=== PATIENT | male | born 1940 | race Caucasian/White ===

== ENCOUNTER 2016-09-08 07:22 | Observation (INO) | payer MEDICARE ==
[2016-09-08 08:50] LABS: Hematocrit 46 % (42-52); Hemoglobin 15.6 g/dl (14.0-18.0); Mean Corpuscular HGB Conc 34 g/dl (31-36); Mean Corpuscular Hemoglobin 33 pg (27-31); Mean Corpuscular Volume 98 fL (80-94); Mean Platelet Volume 9 um3 (7.4-10.4); Red Blood Count 4.73 10^6/ul (4.0-5.4); Red Cell Distribution Width 13 % (10.5-15); White Blood Count 5.4 10^3/ul (3.5-10.8)
[2016-09-08] MEDS ORDERED: Meclizine TAB* 12.5 MG PO PRN (09:03)
[2016-09-08 09:06] LABS: Albumin 3.8 g/dL (3.2-5.2); BUN/Creatinine Ratio 13.3 (8-20); Calcium 8.8 mg/dL (8.6-10.3); EGFR African American 105.8 (>60); EGFR Non-African American 82.3 (>60); Globulin 3.1 g/dL (2-4); Potassium 3.9 mmol/L (3.5-5.0); Total Bilirubin 0.7 mg/dL (0.2-1.0); Total Protein 6.9 g/dL (6.4-8.9)
--- NOTE | 2016-09-08 09:11 | ED ---
Conchis Moreno Edward, scribed for Belle Estrada MD on 09/08/16 at 0736 . Dizziness - HPI Summary HPI Summary: 76 y/o male presents to ED c/o intermittent dizziness starting three days ago. The dizziness is described as room spinning and can be aggravated by turning his head, but does not last very long if he keeps his head still. The pt states he only has dizziness in the morning. Associated sx: nausea with dizziness, black stool for a week and a half and mild chest pain described as pressure, starting this morning when he woke up and lasting a couple of minutes. Denies hearing deficiency, tinnitus, vomiting and ABD pain. FHx HTN and PMHx no DM, HLD , HTN, CA, colitis. SHx stent in 1999. Pt uses EtOH three times a week. - History Of Current Complaint Chief Complaint: EDDizziness Stated Complaint: DIZZY,NAUSEA Hx Obtained From: Patient Timing: Intermittent Episode Lasting - Briefly, only in the morning Aggravating Factor(s): Change In Head Position - Turning head to the side Alleviating Factor(s): Other - Keeping head still Associated Signs And Symptoms: Positive: Nausea, Chest Pain - Mild chest pressure, Blood In Stool - Black stool, Other: - No hearing defiency. Negative : Vomiting, Tinnitus - Risk Factors Cardiac Risk Factors: Hypertension, Family History - HTN, Prior CA - Allergies/Home Medications Allergies/Adverse Reactions: Allergies Allergy/AdvReac Type Severity Reaction Status Date / Time No Known Allergies Allergy Verified 09/08/16 07:43 Home Medications: Home Medications Cholecalciferol [Vitamin D3] 1,000 units PO DAILY 09/08/16 [History Confirmed ] Ecotrin EC Low Dose 81 MG* 81 mg PO DAILY 09/08/16 [History Confirmed 09/08/16] Lisinopril TAB* [Prinivil TAB 10 MG*] 10 mg PO DAILY 09/08/16 [History Confirmed 09/08/16] Mesalamine (NF) [Lialda (NF)] 1.2 mg PO DAILY 09/08/16 [History Confirmed ] Metoprolol Tartrate TAB* [Lopressor TAB*] 50 mg PO DAILY 09/08/16 [History Confirmed 09/08/16] Omeprazole CAP* [Prilosec CAP* 20 MG] 20 mg PO DAILY 09/08/16 [History Confirmed 09/08/16] Sertraline* [Zoloft*] 50 mg PO DAILY 09/08/16 [History Confirmed 09/08/16] ZyrTEC 10 MG TAB* 10 mg PO DAILY 09/08/16 [History Confirmed 09/08/16] PMH/Surg Hx/FS Hx/Imm Hx Previously Healthy: No Endocrine/Hematology History: Reports: Other Endocrine/Hematological Disorders - Dyslipidemia, HLD Cardiovascular History: Reports: Hx Hypertension, Hx Myocardial Infarction GI History: Reports: Hx Gastroesophageal Reflux Disease, Other GI Disorders - Colitis Psychiatric History: Reports: Hx Depression Infectious Disease History: Denies: Traveled Outside the [place] in Last 30 Days - Family History Known Family History: Positive: Cardiac Disease - CA - mother in 70's, Hypertension - Social History Occupation: Retired Lives: Alone Alcohol Use: Occasionally Hx Substance Use: No Substance Use Type: Reports: None Hx Tobacco Use: Yes Smoking Status (MU): Former Smoker - Quit in 1985 Type: Cigarettes Review of Systems Constitutional: Negative Eyes: Negative ENT: Negative - No tinnitus Positive: Chest Pain - Mild chest pressure Respiratory: Negative Positive: Nausea, Other - Black stool. Negative: Abdominal Pain, Vomiting Genitourinary: Negative Musculoskeletal: Negative Skin: Negative Neurological: Other - Dizziness. No vision deficiency Psychological: Normal All Other Systems Reviewed And Are Negative: Yes Physical Exam - Summary Physical Exam Summary: RECTAL EXAM: Normal, no blood in stool Triage Information Reviewed: Yes Vital Signs On Initial Exam: Initial Vitals Temp Pulse Resp BP Pulse Ox 97.5 F 54 20 162/73 98 09/08/16 07:26 09/08/16 07:26 09/08/16 07:26 09/08/16 07:26 09/08/16 07:26 Vital Signs Reviewed: Yes Appearance: Positive: Well-Appearing, No Pain Distress Skin: Positive: Warm, Skin Color Reflects Adequate Perfusion, Dry Eyes: Positive: EOMI, MYLA ENT: Positive: Pharynx normal, TMs normal Neck: Positive: Supple, Nontender Respiratory/Lung Sounds: Positive: Clear to Auscultation, Breath Sounds Present. Negative: Rales, Rhonchi, Wheezes Cardiovascular: Positive: RRR, Other - No gallop. Negative: Murmur, Rub Abdomen Description: Positive: Nontender, Soft, Other: - No rebound. Negative: Distended, Guarding Bowel Sounds: Positive: Present Musculoskeletal: Positive: Strength/ROM Intact. Negative: Edema Left, Edema Right Neurological: Positive: Sensory/Motor Intact, Alert, Oriented to Person Place, Time, CN Intact II-III, Other - Discomfort with R-sided gaze Psychiatric: Positive: Affect/Mood Appropriate Diagnostics - Vital Signs Vital Signs Temp Pulse Resp BP Pulse Ox 09/08/16 07:26 97.5 F 54 20 162/73 98 - Laboratory Lab Results: Lab Results 09/08/16 09/08/16 09/08/16 Range/Units 08:40 08:40 08:40 WBC 5.4 (3.5-10.8) 10^3/ul RBC 4.73 (4.0-5.4) 10^6/ul Hgb 15.6 (14.0-18.0) g/dl Hct 46 (42-52) % MCV 98 H (80-94) fL MCH 33 H (27-31) pg MCHC 34 (31-36) g/dl RDW 13 (10.5-15) % Plt Count 176 (150-450) 10^3/ul MPV 9 (7.4-10.4) um3 Neut % (Auto) 70.8 (38-83) % Lymph % (Auto) 19.1 L (25-47) % [place] % (Auto) 8.0 (1-9) % Eos % (Auto) 1.4 (0-6) % Baso % (Auto) 0.7 (0-2) % Absolute Neuts (auto) 3.8 (1.5-7.7) 10^3/ul Absolute Lymphs (auto) 1.0 (1.0-4.8) 10^3/ul Absolute Monos (auto) 0.4 (0-0.8) 10^3/ul Absolute Eos (auto) 0.1 (0-0.6) 10^3/ul Absolute Basos (auto) 0 (0-0.2) 10^3/ul Absolute Nucleated RBC 0 10^3/ul Nucleated RBC % 0.1 INR (Anticoag Therapy) 0.94 (0.89-1.11) APTT 30.5 (26.0-36.3) seconds Sodium 137 (133-145) mmol/L Potassium 3.9 (3.5-5.0) mmol/L Chloride 105 (101-111) mmol/L Carbon Dioxide 27 (22-32) mmol/L Anion Gap 5 (2-11) mmol/L BUN 12 (6-24) mg/dL Creatinine 0.90 (0.67-1.17) mg/dL Est GFR ( Amer) 105.8 (>60) Est GFR (Non-Af Amer) 82.3 (>60) BUN/Creatinine Ratio 13.3 (8-20) Glucose 124 H (70-100) mg/dL Calcium 8.8 (8.6-10.3) mg/dL Total Bilirubin 0.70 (0.2-1.0) mg/dL AST 14 (13-39) U/L ALT 12 (7-52) U/L Alkaline Phosphatase 75 (34-104) U/L Troponin I 0.00 (<0.04) ng/mL Total Protein 6.9 (6.4-8.9) g/dL Albumin 3.8 (3.2-5.2) g/dL Globulin 3.1 (2-4) g/dL Albumin/Globulin Ratio 1.2 (1-3) Result Diagrams: 09/08/16 08:40 09/08/16 08:40 Lab Statement: Any lab studies that have been ordered have been reviewed, and results considered in the medical decision making process. - EKG 1 Cardiac Rate: NL EKG Rhythm: Sinus Bradycardia - [address] Segment: Normal Ectopy: None EKG Interpretation: 07:45 Dizzy Course/Dx - Course Course Of Treatment: 76 yo very active male with 3 complaints 1) what seems to be peripheral vertigo, spinning in the am that is worse with turning his head to the side 2) cp this am at 6 with a hx of CA 3) dark tarry stools- takes iron and does have ulcerative colitis-no stool in rectal vault. Case was discussed with Dr. Chen who will bring the pt is as an obv to r/o CA Assessment/Plan: Discussed with Dr. Chen at 09:00, who agreed to admit the pt for observation of vertigo and CP. - Diagnoses Provider Diagnoses: Vertigo, Chest pain - Provider Notifications Discussed Care Of Patient With: Tiffany Chen Time Discussed With Above Provider: 09:00 Instructed by Provider To: Admit As Observation - For Vertigo and CP Discharge - Discharge Plan Condition: Stable Disposition: ADMITTED TO [facility] Referrals: Gerald Kong MD [Primary Care Provider] - The documentation as recorded by the Conchis queen Edward accurately reflects the service I personally performed and the decisions made by , Belle Estrada MD.
[2016-09-08] MEDS ORDERED: Acetaminophen TAB* 325 MG PO ONE (09:14)
[2016-09-08] MEDS ORDERED: Acetaminophen TAB* 325 MG PO PRN (11:36)
[2016-09-08] MEDS ORDERED: Ondansetron INJ* 2 MG/ML VIAL IV PRN (11:36)
[2016-09-08] MEDS ORDERED: NS 0.9% 1000 ML* 1,000 ML IV SCH (11:45)
--- NOTE | 2016-09-08 12:34 | RAD ---
Indication: Chest pain. Single frontal view of the chest performed at 1147 hours was reviewed. No prior study is available for comparison. No mediastinal shift is noted. Heart is of normal size and configuration. Lung tavares appear clear. IMPRESSION: NO ACTIVE CARDIOPULMONARY DISEASE IS NOTED.
[2016-09-08] MEDS: Heparin VIAL(*) 5000 UNITS/ML VIAL (FIVE THOUSAND) SUBCUT SCH ×2 (14:58→20:53)
[2016-09-08] MEDS: Meclizine TAB* 12.5 MG PO SCH ×2 (14:58→20:53)
[2016-09-08 15:08] LABS: Urine Bilirubin Negative (Negative); Urine Glucose Negative (Negative); Urine Nitrite Negative (Negative)
--- NOTE | 2016-09-08 22:37 | HP ---
CC: Dr. Kong * HISTORY AND PHYSICAL: DATE OF ADMISSION: 09/08/16 PRIMARY CARE PROVIDER: Dr. Kong. ATTENDING PHYSICIAN FROM THE HOSPITAL: Tiffany Chen DO * (report dictated by Lio Norwood NP). CHIEF COMPLAINT: 1. Dizziness. 2. Chest pain. HISTORY OF PRESENT ILLNESS: Mr. Farris is a 76-year-old male patient who has a history of coronary artery disease. He also carries a history of hypertension , hyperlipidemia. He has had a heart attack in the past requiring cardiac stenting, history of depression, ulcerative colitis and GERD. He comes in today , says that throughout the weekend he has been having episodes of dizziness, feeling like the room has been spinning, worse with moving his head, off and on since Thursday. He says he wakes up first thing in the morning, he feels dizzy. He has some essential oils that he puts on behind his ears and the dizziness eventually goes away. This happened Thursday and Thursday and it also happened again this morning. The patient says that he does not have any fevers or recent URI symptoms. He denies having any shortness of breath. He says he does get nauseous with this but he has not vomited. He says that he has not had any recent ear pain or ear discharge and there has been no reports of trouble with vision. No reports of weakness to one side or trouble with his gait. He says he has been feeing dizzy. He was concerned today though, however , because with this episode of dizziness, he did have an episode of chest discomfort described as a pressure in the center of his chest lasting minutes that went away by itself. He says he does not get pain with exertion. He says he does play softball on a weekly basis and he does not get pain when he runs the bases. He denied having any cough. No shortness of breath and no recent trips or travel or calf pain or leg pain. Because of the chest discomfort and the dizziness, the hospitalist service was asked to evaluate for admission. PAST MEDICAL HISTORY: Significant for: 1. GERD. 2. Hypertension. 3. Depression. 4. CAD. 5. IL x1. 6. Hyperlipidemia. 7. Ulcerative colitis. PAST SURGICAL HISTORY: 1. He has had a heart catheterization with stenting. 2. Appendectomy. HOME MEDICATIONS: According to a list that he provided us includes: 1. Metoprolol XL 50 mg p.o. daily. 2. Zoloft 50 mg daily. 3. Mesalamine 1.2 mg p.o. daily. 4. Lisinopril 10 mg daily. 5. Zyrtec 10 mg p.o. daily. 6. Vitamin D3 1000 units p.o. daily. 7. Prilosec 20 mg daily. 8. Aspirin 81 mg daily. ALLERGIES TO MEDICATIONS: Include no known drug allergies. FAMILY HISTORY: His mother had a history of IL, father's history was reviewed and noncontributory. SOCIAL HISTORY: He is a former smoker. He rarely drinks alcohol. Surrogate decision maker is his daughter. REVIEW OF SYSTEMS: There is no documented fever. He denied having any significant weight change. There was no double vision. He denies having any ear discharge. There is no rhinorrhea. No sore throat. No thyroid enlargement. There was chest pain per my HPI. There was no orthopnea. No nocturnal dyspnea. There was no abdominal pain. No nausea, no vomiting. There is no dysuria, no frequency, no seizure. There was no loss of consciousness, no pruritus, no skin ulcerations. Review of 14 systems completed , all others negative. PHYSICAL EXAMINATION GENERAL: At this time, Mr. Farris is a 76-year-old male patient who appears to be well nourished, well developed. He does not appear to be in acute distress. VITAL SIGNS: Blood pressure 150/79, pulse 47, respirations 16, O2 sat 97%, temperature of 97.5. HEENT: Head is atraumatic, normocephalic. Eyes: EOMs are intact. Sclerae anicteric and not pale. Throat: Oral mucosa appears to be moist. No oropharyngeal erythema. NECK: Supple. HEART: Heart sounds S1, S2. Regular rate and rhythm. No murmurs, rubs, or gallops. LUNGS: Clear to auscultation bilaterally. No wheezes, rales or rhonchi. ABDOMEN: Soft, flat, nontender. Bowel sounds present. EXTREMITIES: Pulses are 2+ throughout. He is able to move all 4 extremities with 5/5 strength. NEUROLOGIC: He is awake. He is alert. He is oriented x3. His tongue is midline. Commercial Management Accountant were equal. [id number] intact bilaterally. Cwpa-ok-wade intact bilaterally. Cranial nerves were intact. No nystagmus was noted on my exam. Visual tavares were intact and there was no report of double vision. SKIN: Grossly intact. LABORATORY DATA/DIAGNOSTIC STUDIES: Revealed a WBC of 5.4, RBC of 4.73, hemoglobin of 15.6, hematocrit of 46 with platelet count of 176,000. The INR is 0.94. PTT is 30.5. Sodium was 137, potassium was 3.9, chloride of 105, bicarb 27, BUN 12, creatinine 0.90. Glucose 124, calcium 8.8, total bili 0.7, AST 14, ALT 12, alk phos 75. Troponin 0. Albumin is 3.8. The patient did have an EKG obtained today. Unfortunately, I do not have a previous for comparison but this EKG revealed a sinus bradycardia, rate of 51, no ST elevation or T wave inversions were noted. Old medical records were reviewed. ASSESSMENT/PLAN: Mr. Farris is a 76-year-old male patient coming into the ER today with complaints of dizziness in addition to this one episode of chest discomfort. There was concern in the ED. Because of the chest discomfort and dizziness, we were asked to evaluate for admission. He will be admitted under observation status for: 1. Dizziness: At this point, I think this is benign positional vertigo. The symptoms have now resolved. At this point, I would just like to monitor him, we will get neuro checks every 4 hours. If he continues to have any more episodes of dizziness while he is here, then I will probably get an MRI of the brain and consult Neurology, but at this point, he appears to be stable and his symptoms again have resolved. I will order meclizine standing. 2. Chest discomfort: Again, he does have multiple risk factors of acute coronary syndrome. I will go ahead and cycle his troponin, check a stress test. We will get a D-dimer and also check a chest x-ray. 3. Coronary artery disease: He is on an aspirin, beta kimo, continue hold parameters. 4. Depression - continue supportive care. He is on Zoloft. 5. Gastroesophageal reflux disease - continue PPI therapy. 6. Hyperlipidemia - continue his current medical regimen. 7. History of ulcerative colitis - continue his mesalamine. 8. DVT prophylaxis - he is high risk, he will be placed on heparin subcu. 9. Code status - he wishes to be a DNR. He says he does have an MOLST form filled out, which I this record if possible. 10. Fluids, electrolytes, nutrition - he can have a heart healthy diet and then he will be n.p.o. after midnight for a possible stress test in the morning. TIME SPENT: Time spent on the admission 60 minutes, greater than half the time was spent [id number] with the patient obtaining my history and physical; other half the time spent going over plan of care with the patient and implementing plan of care. I did discuss the plan of care with my attending, Dr. Chen, who is in agreement. LIO NORWOOD, TWIN [id number]/CPS #: [id number] FRANNIE
[2016-09-09 02:38] LABS: EGFR African American 107.2 (>60); EGFR Non-African American 83.3 (>60)
[2016-09-09 04:53] LABS: Hematocrit 43 % (42-52); Hemoglobin 14.4 g/dl (14.0-18.0); Mean Corpuscular HGB Conc 34 g/dl (31-36); Mean Corpuscular Hemoglobin 33 pg (27-31); Mean Corpuscular Volume 97 fL (80-94); Mean Platelet Volume 8 um3 (7.4-10.4); Red Blood Count 4.42 10^6/ul (4.0-5.4); Red Cell Distribution Width 13 % (10.5-15); White Blood Count 6.5 10^3/ul (3.5-10.8)
[2016-09-09 05:04] LABS: BUN/Creatinine Ratio 16.5 (8-20); Calcium 8.7 mg/dL (8.6-10.3); EGFR African American 104.5 (>60); EGFR Non-African American 81.2 (>60); HDL Cholesterol 34.7 mg/dL; Potassium 3.8 mmol/L (3.5-5.0)
[2016-09-09] MEDS: Meclizine TAB* 12.5 MG PO SCH ×2 (05:26→13:14)
[2016-09-09] MEDS: Heparin VIAL(*) 5000 UNITS/ML VIAL (FIVE THOUSAND) SUBCUT SCH ×2 (05:26→13:17)
[2016-09-09] MEDS ORDERED: Omeprazole CAP* 20 MG PO SCH (07:30)
--- NOTE | 2016-09-09 08:38 | PN ---
Subjective Date of Service: 09/09/16 Interval History: No more vertigo (he describes as "spinning"). He states he had chest pain for 1 -2 minutes yesterday AM, never has that other times, does not have NTG at home. No new c/o, anxious to go home. Objective Active Medications: Acetaminophen (Tylenol Tab*) 650 mg PO Q6H PRN PRN Reason: FEVER/PAIN Last Admin: 09/09/16 02:32 Dose: 650 mg Aspirin (Aspirin Ec Low Dose*) 81 mg PO DAILY [facility] Heparin Sodium (Porcine) (Heparin Vial(*)) 5,000 units SUBCUT Q8HR [facility] Last Admin: 09/09/16 05:26 Dose: 5,000 units Lisinopril (Prinivil Tab*) 10 mg PO DAILY [facility] Meclizine HCl (Antivert Tab*) 12.5 mg PO Q8HR [facility] Last Admin: 09/09/16 05:26 Dose: 12.5 mg Mesalamine (Lialda (Nf)) 1.2 gm PO DAILY [facility] Metoprolol Succinate (Toprol Xl Tab*) 50 mg PO DAILY [facility] Omeprazole (Prilosec Cap*) 20 mg PO DAILY@0730 [facility] Ondansetron HCl (Zofran Inj*) 4 mg IV Q6H PRN PRN Reason: NAUSEA Sertraline HCl (Zoloft*) 50 mg PO DAILY [facility] Vital Signs 09/08/16 09/08/16 09/08/16 09:30 10:00 10:30 Temperature Pulse Rate 50 51 50 Respiratory Rate Blood Pressure 148/92 131/74 140/63 (mmHg) O2 Sat by Pulse 94 94 95 Oximetry 09/08/16 09/08/16 09/08/16 11:06 11:07 12:00 Temperature 97.5 F Pulse Rate 47 Respiratory 18 16 14 Rate Blood Pressure 150/79 (mmHg) O2 Sat by Pulse 97 Oximetry 09/08/16 09/08/16 09/08/16 13:00 13:53 14:00 Temperature Pulse Rate Respiratory 14 14 11 Rate Blood Pressure (mmHg) O2 Sat by Pulse Oximetry 09/08/16 09/08/16 09/08/16 15:00 15:11 16:00 Temperature 98.1 F Pulse Rate 66 Respiratory 19 16 18 Rate Blood Pressure 135/70 (mmHg) O2 Sat by Pulse 94 95 Oximetry 09/08/16 09/08/16 09/08/16 17:00 18:00 19:11 Temperature 98.1 F Pulse Rate 67 Respiratory 15 16 16 Rate Blood Pressure 148/75 (mmHg) O2 Sat by Pulse 95 Oximetry 09/08/16 09/09/16 09/09/16 23:12 00:00 03:13 Temperature 97.8 F 98.1 F Pulse Rate 61 62 Respiratory 16 18 Rate Blood Pressure 158/71 142/72 (mmHg) O2 Sat by Pulse 97 97 94 Oximetry Oxygen Devices in Use Now: None Appearance: Alert, partly up in bed. In good spirits. Looks comfortable. Eyes: No Scleral Icterus, - - No nystagmus Neck: NL Appearance and Movements; NL JVP, No Thyroid Enlargement, Masses Respiratory: Symmetrical Chest Expansion and Respiratory Effort, Clear to Auscultation, Clear to Percussion Cardiovascular: NL Sounds; No Murmurs; No JVD, RRR, No Edema, - Extremities: No Edema, No Clubbing, Cyanosis, - Skin: No Rash or Ulcers, No Nodules or Sclerosis, - Neurological: Alert and Oriented x 3, NL Sensation Result Diagrams: 09/09/16 04:41 09/09/16 04:40 Additional Lab and Data: Lab Results 09/08/16 09/08/16 09/08/16 Range/Units 08:40 08:40 08:40 WBC 5.4 (3.5-10.8) 10^3/ul RBC 4.73 (4.0-5.4) 10^6/ul Hgb 15.6 (14.0-18.0) g/dl Hct 46 (42-52) % MCV 98 H (80-94) fL MCH 33 H (27-31) pg MCHC 34 (31-36) g/dl RDW 13 (10.5-15) % Plt Count 176 (150-450) 10^3/ul MPV 9 (7.4-10.4) um3 Neut % (Auto) 70.8 (38-83) % Lymph % (Auto) 19.1 L (25-47) % [place] % (Auto) 8.0 (1-9) % Eos % (Auto) 1.4 (0-6) % Baso % (Auto) 0.7 (0-2) % Absolute Neuts (auto) 3.8 (1.5-7.7) 10^3/ul Absolute Lymphs (auto) 1.0 (1.0-4.8) 10^3/ul Absolute Monos (auto) 0.4 (0-0.8) 10^3/ul Absolute Eos (auto) 0.1 (0-0.6) 10^3/ul Absolute Basos (auto) 0 (0-0.2) 10^3/ul Absolute Nucleated RBC 0 10^3/ul Nucleated RBC % 0.1 INR (Anticoag Therapy) 0.94 (0.89-1.11) APTT 30.5 (26.0-36.3) seconds Sodium 137 (133-145) mmol/L Potassium 3.9 (3.5-5.0) mmol/L Chloride 105 (101-111) mmol/L Carbon Dioxide 27 (22-32) mmol/L Anion Gap 5 (2-11) mmol/L BUN 12 (6-24) mg/dL Creatinine 0.90 (0.67-1.17) mg/dL Est GFR ( Amer) 105.8 (>60) Est GFR (Non-Af Amer) 82.3 (>60) BUN/Creatinine Ratio 13.3 (8-20) Glucose 124 H (70-100) mg/dL Calcium 8.8 (8.6-10.3) mg/dL Total Bilirubin 0.70 (0.2-1.0) mg/dL AST 14 (13-39) U/L ALT 12 (7-52) U/L Alkaline Phosphatase 75 (34-104) U/L Troponin I 0.00 (<0.04) ng/mL Total Protein 6.9 (6.4-8.9) g/dL Albumin 3.8 (3.2-5.2) g/dL Globulin 3.1 (2-4) g/dL Albumin/Globulin Ratio 1.2 (1-3) Assess/Plan/Problems-Billing Assessment: - Patient Problems (1) Vertigo Current Visit: Yes Status: Acute Code(s): R42 - DIZZINESS AND GIDDINESS SNOMED Code(s): 620734592 Comment: Resolved, likely mild labyrinthitis. (2) Chest pain Current Visit: Yes Status: Acute Code(s): R07.9 - CHEST PAIN, UNSPECIFIED SNOMED Code(s): 70402190 Comment: Lasted 1-2 minutes. Hx [place] 1985. Stress test showed ischemia but at high level of exertion. Troponin wnl x 3. ECG wnl. Discussed with Dr. Evans. Stable angina, fup with Dr. Rasmussen. (3) HTN (hypertension) Current Visit: Yes Status: Acute Code(s): I10 - ESSENTIAL (PRIMARY) HYPERTENSION SNOMED Code(s): 64865850 Comment: Continue metoprolol, lisinopril. (4) Ulcerative colitis Current Visit: Yes Status: Acute Code(s): K51.90 - ULCERATIVE COLITIS, UNSPECIFIED, WITHOUT COMPLICATIONS SNOMED Code(s): 86133914 Comment: Continue mesalamine.
[2016-09-09] MEDS ORDERED: Lisinopril TAB* 10 MG PO SCH (09:00)
[2016-09-09] MEDS ORDERED: Mesalamine (NF) 1.2 GM TAB PO SCH (09:00)
[2016-09-09] MEDS ORDERED: Sertraline* 50 MG TAB PO SCH (09:00)
[2016-09-09] MEDS ORDERED: Metoprolol Succinate XL TAB* 50 MG PO SCH ×2 (09:00)
[2016-09-09] MEDS ORDERED: Aspirin EC Low Dose* 81 MG TAB.EC PO SCH (09:00)
--- NOTE | 2016-09-09 11:21 | RAD ---
Indication: Chest pain. Myocardial perfusion scan was performed utilizing 1 day protocol. 10.07 mCi of technetium 99m tetrofosmin was injected for the rest portion of study. Treadmill stress study was performed and 25.9 mCi of technetium 99m tetrofosmin was injected for the stress portion of the study. The maximum heart rate achieved was 85% of the maximum predicted value. Attenuation correction could not be performed due to body habitus. There is inferior wall photopenia extending into the septum which appears to reverse on the rest images. This is of moderate size. Evaluation of wall motion demonstrates no evidence of focal wall motion abnormality. Ejection fraction is 61%. IMPRESSION: Moderate-sized reversible change involving the inferior wall extending into the septum. Ejection fraction of 61% with no focal wall motion abnormality. ASSESSMENT: Intermediate risk Based on imaging criteria from ACC/AHA 2002 Guideline Update for the Management of Patients With Chronic Stable Angina Table 23. Noninvasive Risk Stratification. Reference.
[2016-09-09 14:54] VITALS: BP 143/75
--- NOTE | 2016-09-10 12:08 | DS ---
CC: Dr. Kong; Dr. Herrera in [place] DISCHARGE SUMMARY: DATE OF ADMISSION: DATE OF DISCHARGE: 09/09/16 HISTORY OF PRESENT ILLNESS: This 76-year-old man presented with both vertigo and chest pain. He lane s had vertigo for a few days. He only had chest pain for a minute or 2 on the morning of admission. The next morning, when I saw the patient, his vertigo had resolved completely. He was admitted to the telemetry unit. He had 3 troponins, all of which were within normal limits. He had an exercis e stress test with nuclear imaging. Dr. Evans administered the test. I discussed the test with morales christensen. The patient went over 8 minutes and with a high level of exertion, there were some changes on th e EKG and some chest discomfort, which the patient told Dr. Evans had been present many times when he had undergone similar exertion that was different than the pain he had had in the morning at rest on the day of admission. The nuclear images showed moderate area of reversible ischemia in the inferior wall extending to the septum. Wall motion was normal. Ejection fraction was normal. Dr. Evans interpreted this as the patient having stable angina and a good exercise tolerance. I ad vised the patient to call his primary ornamental metal fabricator apprentice, Dr. Herrera today or tomorrow morning to discu ss the findings with him to see if any change in his management would be indicated. FINAL DIAGNOSES: 1. Vertigo. 2. Stable angina. 3. Hypertension. 4. Ulcerative colitis. DISCHARGE MEDICATIONS: 1. Sertraline 50 mg daily. 2. Lisinopril 10 mg daily. 3. Zyrtec 10 mg daily. 4. Vitamin D3 1000 units daily. 5. Omeprazole 20 mg daily. 6. Aspirin 81 mg daily. 7. Mesalamine 1.2 g daily. 8. Metoprolol succinate 15 mg daily. [id number]/[facility] #: [id number]
== END 2016-09-09 15:18 | disposition home or self-care (01) ==
LOC: ED 07:22 → MEDTELE 09:02
PROVIDERS: ADMIT Hospitalist; ATTEND Internal Medicine
DX: R42 Dizziness and giddiness (principal); I25.119 Atherosclerotic heart disease of native coronary artery with unspecified angina pectoris; I10 Essential (primary) hypertension; K51.90 Ulcerative colitis, unspecified, without complications; I25.2 Old myocardial infarction; E78.5 Hyperlipidemia, unspecified; Z95.5 Presence of coronary angioplasty implant and graft; Z87.891 Personal history of nicotine dependence; K21.9 Gastro-esophageal reflux disease without esophagitis; Z79.899 Other long term (current) drug therapy
CPT/HCPCS: 36415; 71010; 78452; 80048; 80053; 80061; 81003; 82565; 83036; 84484; 84520; 85025; 85379; 85610; 85730; 87086; 93005; 93017; 99283; A9270-GY; A9502; G0378; J1644

== ENCOUNTER 2017-08-18 04:58 | Emergency (ER) | payer MEDICARE ==
[2017-08-18] MEDS ORDERED: NS 0.9% 1000 ML* 1,000 ML IV ONE (05:14)
[2017-08-18] MEDS ORDERED: Ketorolac INJ* 15 MG/ML 1 ML VIAL IM ONE (05:14)
[2017-08-18] MEDS ORDERED: Ondansetron INJ* 2 MG/ML VIAL IV ONE (05:14)
[2017-08-18] MEDS ORDERED: Morphine VIAL* 4 MG/ML VIAL (1 ml vial) IV ONE (05:15)
[2017-08-18 05:49] LABS: ABS Basophils 0 10^3/ul (0-0.2); ABS Eosinophils 0.2 10^3/ul (0-0.6); ABS Lymphocytes 1.5 10^3/ul (1.0-4.8); ABS Monocytes 0.8 10^3/ul (0-0.8); ABS Neutrophils 7.1 10^3/ul (1.5-7.7); ABS Nucleated RBC 0 10^3/ul; Eosinophil % 1.7 % (0-6); Hematocrit 44 % (42-52); Hemoglobin 14.9 g/dl (14.0-18.0); Lymphocyte % 15.5 % (25-47); Mean Corpuscular HGB Conc 34 g/dl (31-36); Mean Corpuscular Hemoglobin 33 pg (27-31); Mean Corpuscular Volume 97 fL (80-94); Mean Platelet Volume 8.3 um3 (7.4-10.4); Nucleated Red Blood Cells % 0.1; Platelet Count 214 10^3/ul (150-450); Red Blood Count 4.52 10^6/ul (4.00-5.40); Red Cell Distribution Width 13 % (10.5-15); White Blood Count 9.6 10^3/ul (3.5-10.8)
[2017-08-18 06:05] LABS: EGFR Non-African American 55.1 (>60)
[2017-08-18] MEDS ORDERED: Tamsulosin CAP* 0.4 MG PO ONE (06:19)
[2017-08-18 06:20] LABS: Urine Appearance Clear; Urine Blood Negative (Negative); Urine Color Yellow; Urine Ketones Negative (Negative); Urine Protein Negative (Negative); Urine Specific Gravity 1.011 (1.010-1.030); Urine Urobilinogen Negative (Negative)
--- NOTE | 2017-08-18 06:34 | ED ---
Saji Moreno Tariq, scribed for Magui Guerrero MD on 08/18/17 at 0528 . Abdominal Pain/Male - HPI Summary HPI Summary: A 77 y/o male presents to ED c/o right flank pain. According to the patient, he exhibited flank pain on the right side this past Thursday (3 days ago), however the pain went away and started up again during the night. The pain woke him up from his sleep and currently it has reached 6/10 in severity. He noted that sometimes it could reach 7/10. The right flank pain radiates to his back. The patient denies any urination issues/pain, nausea, vomit, chills or fever. He noted that he has a history of renal calculi and his symptoms feels similar to the symptoms he had then. Pt noted having a bowel movement this morning. PMHx of renal calculi. - History of Current Complaint Chief Complaint: EDFlankPain Stated Complaint: FLANK PAIN Time Seen by Provider: 08/18/17 05:09 Hx Obtained From: Patient Onset/Duration: Sudden Onset, Still Present Timing: Intermittent Severity Initially: Moderate Severity Currently: Moderate Pain Intensity: 6 Pain Scale Used: 0-10 Numeric Location: Flank - right Radiates: Yes Radiates to: Back Aggravating Factor(s): Nothing Alleviating Factor(s): Nothing Associated Signs And Symptoms: Positive: Other - NEGATIVE: Chills. Negative: Fever, Urinary Symptoms, Nausea, Vomiting - Allergies/Home Medications Allergies/Adverse Reactions: Allergies Allergy/AdvReac Type Severity Reaction Status Date / Time No Known Allergies Allergy Verified 09/08/16 07:43 PMH/Surg Hx/FS Hx/Imm Hx Endocrine/Hematology History: Reports: Other Endocrine/Hematological Disorders - Dyslipidemia, HLD Cardiovascular History: Reports: Hx Coronary Artery Disease, Hx Hypercholesterolemia, Hx Hypertension, Hx Myocardial Infarction GI History: Reports: Hx Gastroesophageal Reflux Disease, Other GI Disorders - Colitis Sensory History: Reports: Hx Contacts or Glasses, Hx Hearing Aid - not with pt Opthamlomology History: Reports: Hx Contacts or Glasses Psychiatric History: Reports: Hx Depression Infectious Disease History: No Infectious Disease History: Denies: Traveled Outside the [place] in Last 30 Days - Family History Known Family History: Positive: Cardiac Disease - [place] - mother in 70's, Hypertension - Social History Alcohol Use: Occasionally Alcohol Amount: Social drinking Hx Substance Use: No Substance Use Type: Reports: None Hx Tobacco Use: Yes Smoking Status (MU): Former Smoker Type: Cigarettes Review of Systems Negative: Fever, Chills Positive: Abdominal Pain - right flank pain. Negative: Vomiting, Nausea Positive: no symptoms reported All Other Systems Reviewed And Are Negative: Yes Physical Exam - Summary Physical Exam Summary: VITAL SIGNS: Reviewed. GENERAL: Patient is a well-developed and nourished MALE who is lying comfortable in the stretcher. Patient is not in any acute respiratory distress. HEAD AND FACE: No signs of trauma. No ecchymosis, hematomas or skull depressions. No sinus tenderness. EYES: PERRLA, EOMI x 2, No injected conjunctiva, no nystagmus. EARS: Hearing grossly intact. Ear canals and tympanic membranes are within normal limits. MOUTH: Oropharynx within normal limits. NECK: Supple, trachea is midline, no adenopathy, no JVD, no carotid bruit, no c- spine tenderness, neck with full ROM. CHEST: Symmetric, no tenderness at palpation LUNGS: Clear to auscultation bilaterally. No wheezing or crackles. CVS: Regular rate and rhythm, S1 and S2 present, no murmurs or gallops appreciated. ABDOMEN: RLQ tenderness. No signs of distention. No rebound no guarding, and no masses palpated. Bowel sounds are normal. EXTREMITIES: FROM in all major joints, no edema, no cyanosis or clubbing. NEURO: Alert and oriented x 3. No acute neurological deficits. Speech is normal and follows commands. SKIN: Dry and warm Triage Information Reviewed: Yes Vital Signs On Initial Exam: Initial Vitals Temp Pulse Resp BP Pulse Ox 97.9 F 63 20 154/82 97 08/18/17 05:00 08/18/17 05:00 08/18/17 05:00 08/18/17 05:00 08/18/17 05:00 Vital Signs Reviewed: Yes Diagnostics - Vital Signs Vital Signs Temp Pulse Resp BP Pulse Ox 08/18/17 05:12 59 96 08/18/17 05:11 66 166/95 95 08/18/17 05:00 97.9 F 63 20 154/82 97 - Laboratory Result Diagrams: 08/18/17 05:32 08/18/17 05:32 Lab Statement: Any lab studies that have been ordered have been reviewed, and results considered in the medical decision making process. - CT A/P CT CT Interpretation Completed By: Radiologist - 5 mm and 4 mm stones mid right ureter causing minimal to moderate hydronephrosis. 9 mm and 2 mm stones right kidney. Cystic foci bilateral kidneys. Unremarkable pancreas and gallbladder. No bowel obstruction, colitis, free fluid or free air. Normal appendix. Diverticulosis colon without acute diverticulitis. Small umbilical hernia and moderate left and small right inguinal region hernias, each containing fat. ED physician reviewed this radiology report. Re-Evaluation - Re-Evaluation First Eval Re-Evaluation Time: 06:20 Change: Improved Comment: PATIENT IS PAIN FREE AND FEELS BETTER. DISCUSSED RESULTS AND DISCHARGE WITH PATIENT. Abdominal Pain Fem Course/Dx - Course Course Of Treatment: A 77 y/o male presents to ED c/o right flank pain. According to the patient, he exhibited flank pain on the right side this past Thursday (3 days ago), however the pain went away and started up again during the night. The pain woke him up from his sleep and currently it has reached 6/ 10 in severity. He noted that sometimes it could reach 7/10. The right flank pain radiates to his back. The patient denies any urination issues/pain, nausea , vomit, chills or fever. He noted that he has a history of renal calculi and his symptoms feels similar to the symptoms he had then. A CT A/P revealed 5 mm and 4 mm stones mid right ureter causing minimal to moderate hydronephrosis. 9 mm and 2 mm stones right kidney. Cystic foci bilateral kidneys. Unremarkable pancreas and gallbladder. No bowel obstruction, colitis, free fluid or free air. Normal appendix. Diverticulosis colon without acute diverticulitis. Small umbilical hernia and moderate left and small right inguinal region hernias, each containing fat. ED physician reviewed this radiology report. In the ED course, the patient recieved Toradol, Morphine, Zofran, Flomax and IV fluids which improved his symptoms. Patient will be discharged with a diagnosis of renal colic and ureter calculi. Patient is to follow up with Urology in 1-2 days. Pt is agreeable with this plan. - Diagnoses Provider Diagnoses: Renal colic, Ureteral calculi Discharge - Sign-Out/Discharge Documenting (check all that apply): Discharge/Admit/Transfer - DISCHARGE - Discharge Plan Condition: Stable Disposition: HOME Prescriptions: oxyCODONE/Acetamin 5/325 MG* [Percocet 5/325 TAB*] 1 tab PO Q6H PRN #20 tab MDD 4 PRN Reason: Pain Tamsulosin CAP* [Flomax CAP*] 0.4 mg PO DAILY #7 cap Patient Education Materials: Kidney Stones (ED), Renal Colic (ED) Referrals: Gerald Kong MD [Primary Care Provider] - Mann Shelton MD [Medical Doctor] - 2 Days (FOLLOW UP WITH UROLOGY IN 1-2 DAYS. ) Additional Instructions: RETURN TO ED FOR ANY NEW OR WORSENING SYMPTOMS. The documentation as recorded by the Saji queen Tariq accurately reflects the service I personally performed and the decisions made by Cesar pichardo Abdul, MD.
[2017-08-18 06:56] VITALS: BP 148/79
--- NOTE | 2017-08-18 08:07 | RAD ---
CLINICAL HISTORY: Right flank pain COMPARISON: Similar CT examination August 06, 2011 TECHNIQUE: Noncontrast CT examination of the abdomen and pelvis from the lung bases through the initial tuberosities. FINDINGS: VISUALIZED LUNG BASES: The visualized lung bases are grossly clear. There is no pleural effusion. ABDOMEN AND PELVIS: Evaluation of the solid organs and vasculature is limited without intravenous contrast. The liver, spleen, pancreas and adrenal glands are grossly normal in appearance. The gallbladder is normal. Along the lateral margin of the upper pole of the right kidney there is a hyperattenuating 1.2 cm structure (image 67). At the mid-level of the right kidney there is a 1 cm renal calculus. There is moderate right-sided hydronephrosis. In the proximal right ureter there appear to be 2 renal calculi with a combined maximum cephalocaudal dimension of 1.2 cm (coronal image 47 and axial image 109). There is mild stranding of the ureter. There is at least one fluid density cyst along the posterior lateral margin of the left kidney. There is no left-sided hydronephrosis or left-sided renal calculi. There are no renal calculi seen in the urinary bladder. Evaluation of the gastrointestinal tract is limited in the absence of oral contrast. The small and large bowel are not distended.There are diverticula throughout the length of the colon becoming more concentrated at the rectosigmoid colon. There is no CT evidence of acute inflammatory change consistent with diverticulitis. There is no gross retroperitoneal or mesenteric lymphadenopathy. The prostate is mildly enlarged measuring 4 x 5.6 cm in the axial plane and 4.9 cm in the cephalocaudal projection. There are bilateral fat-containing inguinal hernias, larger on the left than the right. The coarsely calcified abdominal aorta and iliac arteries are normal in course and diameter. 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 This is similar to the 2012 CT examination. 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 Degenerative changes include multilevel loss of intervertebral disc height involving the lower thoracic and lumbar spine.There are no sinister bone lesions. IMPRESSION: 1. There are 2 renal calculi in the proximal right ureter with a combined maximum cephalocaudal dimension of 1.2 cm with moderate ipsilateral hydronephrosis and right perinephric stranding. 2. Diverticulosis without acute inflammatory change consistent with diverticulitis. 3. Additional chronic and degenerative changes as described in body the report.
== END 2017-08-18 06:56 | disposition home or self-care (01) ==
LOC: ED 04:58
DX: N13.2 Hydronephrosis with renal and ureteral calculous obstruction (principal); Z87.442 Personal history of urinary calculi; K57.30 Diverticulosis of large intestine without perforation or abscess without bleeding; M51.35 Other intervertebral disc degeneration, thoracolumbar region; K42.9 Umbilical hernia without obstruction or gangrene; K40.20 Bilateral inguinal hernia, without obstruction or gangrene, not specified as recurrent; E78.5 Hyperlipidemia, unspecified; I25.10 Atherosclerotic heart disease of native coronary artery without angina pectoris; I25.2 Old myocardial infarction; I10 Essential (primary) hypertension; E78.00 Pure hypercholesterolemia, unspecified; K21.9 Gastro-esophageal reflux disease without esophagitis; F32.9 Major depressive disorder, single episode, unspecified; Z82.49 Family history of ischemic heart disease and other diseases of the circulatory system; Z87.891 Personal history of nicotine dependence
CPT/HCPCS: 36415; 74176; 80053; 81003; 83690; 83735; 85025; 86140; 96372; 96374; 96375; 99283; J1885; J2270; J2405

== ENCOUNTER 2017-08-20 05:53 | Day surgery (SDC) | payer MEDICARE ==
--- NOTE | 2017-08-19 16:01 | HP ---
CC: Dr. Kong * HISTORY AND PHYSICAL: DATE OF PLANNED ADMISSION AND SURGERY: 08/20/17 HISTORY OF PRESENT ILLNESS: Mr. Farris is a 77-year-old white male, who is admitted with right ureteral calculi for cystoscopy, possible right ureteroscopy , laser lithotripsy, and right ureteral stent insertion. Mr. Farris presented to the emergency room 3 days ago with symptoms of right renal colic and was noted on non-contrast CT of the abdomen and pelvis to have 1.2- cm cluster of calculi in the proximal right ureter associated with right hydronephrosis. He was managed conservatively with pain medication and was sent home to follow up in our office. He has been doing relatively well with no recurrence of the acute pain. He was evaluated in the office and had a renal ultrasound, which showed moderate right hydronephrosis and a 1-cm calculus in the midpole of the right kidney and 1.1-cm calculus located about 6 cm distal to the right ureteropelvic junction. The full bladder ultrasound showed minimal jets from the right orifice and large jets from the left orifice. Because of the above history and finding and the size of the stone and the unlikelihood that they would pass spontaneously, the above procedure was advised and accepted. PAST MEDICAL HISTORY AND SYSTEM REVIEW: Detailed in the cardiology consult note dated 06/19/17. Mr. Farris sees Dr. Herrera, upper lining cementer, at [place]. He has a history of coronary artery disease, hypertension, hyperlipidemia, and has a right coronary artery disease and had stent placed 1 year ago. He has done very well and has had no recurrent angina. He is still maintained on anticoagulation with Brilinta. He has very good exercise tolerance and has been doing relatively well from that aspect. He has moderate symptoms of bladder outlet obstruction, but has not needed to be on any treatment. MEDICATIONS: He is maintained on the following medications: 1. Aspirin 81 mg daily. 2. Plavix 75 mg daily. 3. Lisinopril 10 mg daily. 4. Metoprolol 50 mg daily. 5. Brilinta 90 mg daily. 6. Zoloft 25 mg daily. 7. Crestor 20 mg daily. 8. Omeprazole 20 mg daily. 9. Nitroglycerin as needed. ALLERGIES: He reports being intolerant or having allergy to ZETIA. PHYSICAL EXAMINATION GENERAL: He is a pleasant looking white male, who looks his age. VITAL SIGNS: Blood pressure 126/70, pulse of 54, temperature 97, oxygen saturation 96% on room air. LUNGS: Clear. HEART: Regular and rhythmic. No murmurs. ABDOMEN: Soft and no CVA tenderness. IMPRESSION: 1. A 1.2-cm calculi in the proximal right ureter associated with right hydronephrosis. 2. History of coronary artery disease. 3. Hypertension. 4. Hyperlipidemia. PLAN: Plan is for cystoscopy and a placement of right ureteral stent. If the stone is accessible, right ureteroscopy, laser lithotripsy will be performed. Otherwise, the plan is to only put the stent and to bring him back at a later date for definitive treatment of the stone. I discussed the above plans with the patient and his daughter and all their questions were answered. [id number] #: [id number] MTDD
[~2017-08-20 05:53] MED LIST: Buffered Lidocaine 0.9% SYRIN* 5 ML/SYR SYRINGE INTRADERM ONE
[2017-08-20] MEDS ORDERED: cefTRIAXone(*) 1 GM ADVAN/BAG ONE (06:12)
[2017-08-20] MEDS ORDERED: Propofol* 10 MG/ML 20 ML BTL IV PUSH ONE (07:39)
[2017-08-20] MEDS ORDERED: fentaNYL* 50 MCG/ML 2 ML VIAL (100 MCG VIAL) ONE (07:40)
[2017-08-20] MEDS ORDERED: Lidocaine 2% PF * 5 ML VIAL ONE (07:40)
[2017-08-20] MEDS ORDERED: EPHEDrine (Pressors)* 50 MG/ML VIAL ONE (08:44)
[2017-08-20] MEDS ORDERED: Ondansetron INJ* 2 MG/ML VIAL IV PRN (09:06)
[2017-08-20] MEDS ORDERED: Naloxone* 0.4 MG/ML 1 ML VIAL IV PRN (09:06)
[2017-08-20] MEDS ORDERED: fentaNYL* 50 MCG/ML 2 ML VIAL (100 MCG VIAL) IV PRN (09:06)
--- NOTE | 2017-08-20 09:17 | RAD ---
INDICATION: Right ureteroscopic laser lithotripsy and stent insertion. COMPARISON: There are no prior studies available for comparison. TECHNIQUE: 9 seconds of intermittent fluoroscopic guidance were provided and 7 spot films of the abdomen were centered on the right side. FINDINGS: There is partial opacification of the right renal collecting system. Subsequently there is placement of a double-J stent catheter on the right side which demonstrates normal course. IMPRESSION: INTRAOPERATIVE CONTROL FILMS. CPT II Codes: G9500
[2017-08-20 10:30] VITALS: BP 145/69
--- NOTE | 2017-08-20 13:19 | OP ---
CC: Dr. Kong * DATE OF OPERATION: 08/20/17 - MERGED WITH [facility] DATE OF : 42 SURGEON: Mann Shelton MD ANESTHESIOLOGIST: Darell Roland DO ANESTHESIA: General. PRE-OP DIAGNOSES: 1. Right ureteral calculi (2 x 6 mm each). 2. Right renal colic due to above. POST-OP DIAGNOSES: 1. Right ureteral calculi (2 x 6 mm each). 2. Right renal colic due to above. OPERATIVE PROCEDURE: 1. Cystoscopy. 2. Right ureteroscopy, laser lithotripsy of right ureteral calculi. 3. Right retrograde pyelography and placement of right ureteral stent (6-Persian ). INDICATIONS: Mr. Farris is a 77-year-old white male, who presented to the emergency room 2 days ago with symptoms of right renal colic and was noted on noncontrast CT of the abdomen and pelvis to have 2 calculi adjacent to each other located in the proximal to mid right ureter associated with right hydronephrosis. Because of the size of the calculi, their location, and the recurrent episodes of pain, the patient is taken to the operating room for the above procedure. PATHOLOGY AT CYSTOSCOPY: The penile and bulbar urethrae looked normal. The prostatic urethra measured about 2.5 cm in length and there was moderate degree of obstruction by the prostate enlargement. There was a false passage noted in the prostatic urethra posterior to the urethra itself. There was elevation of the bladder neck and obstruction by the prostate. Examination of the bladder showed moderate diffuse trabeculations. There were no suspicious bladder lesions seen. No calculi or diverticula were noted. There was a single orthotopic orifice bilaterally. Upon right ureteroscopy, there were 2 calculi adjacent to each other located in the mid right ureter. The calculi were impacted. They had the gross appearance of calcium oxalate stone. Right retrograde pyelography showed moderate hydronephrosis. DESCRIPTION OF PROCEDURE: After successful general anesthesia, the patient was placed in the lithotomy position and was prepped and draped for cystoscopy. Cystoscopy was performed. The findings in the prostatic urethra and in the bladder were noted. A flexible-tip guidewire was then introduced into the right orifice and positioned in the area of the renal pelvis under fluoroscopic guidance. A size 6.5 semirigid ureteroscope was then introduced inside the bladder. A flexible-tip basket was introduced through the port of the ureteroscope and its flexible tip was introduced inside the right ureteral orifice adjacent to the guidewire. That allowed the atraumatic introduction of the ureteroscope inside the ureter. The scope was then gently introduced inside the ureter until the calculi were visualized. The basket was then introduced proximal to the calculi and it was deployed to avoid proximal migration of the stone fragments during the treatment. A size 550 micron laser fiber was then introduced through the other port of the ureteroscope. Using the laser energy, the stones were broken into multiple fragments. Care was taken not to cause any damage to the ureteral wall. There was some decreased visibility due to the fact that the patient is on anticoagulation with some blood with the treatment; however, the lasering was performed safely and achieved the complete fragmentation of the stones. The larger stone fragments were then extracted and sent for stone analysis. Final inspection of the ureter showed hyperemia and edema at the site of the stones but there was no evidence of any ureteral perforation. No significant stone fragments were noted. There was lots of gravel which is expected to pass spontaneously. Right retrograde pyelography was then performed. A size 7-Persian stent was then placed with the proximal end coiling in the renal pelvis and the distal end coiling inside the bladder. A 16-Persian Leroy catheter was then placed. Rectal examination was performed showing a moderately enlarged but non- suspicious prostate. The patient tolerated the procedure well and left the operating room in good condition. The plan is to see the patient back in about 10 to 14 days in the office and the stent will be removed under local anesthesia. [id number] #: [id number] MTDD
== END 2017-08-20 10:48 | disposition home or self-care (01) ==
LOC: OR 05:53
PROVIDERS: ATTEND Urology
DX: N13.2 Hydronephrosis with renal and ureteral calculous obstruction (principal); I25.10 Atherosclerotic heart disease of native coronary artery without angina pectoris; I10 Essential (primary) hypertension; E78.5 Hyperlipidemia, unspecified; Z95.5 Presence of coronary angioplasty implant and graft; Z79.01 Long term (current) use of anticoagulants; N40.1 Benign prostatic hyperplasia with lower urinary tract symptoms; N13.8 Other obstructive and reflux uropathy
CPT/HCPCS: 74420; 82365; 88300; C1876; J0696; J2704; J3010

== ENCOUNTER 2017-08-20 18:58 | Emergency (ER) | payer MEDICARE ==
--- NOTE | 2017-08-20 20:23 | ED ---
GI/ HPI - HPI Summary HPI Summary: 77 y/o presents to the ED unable to urinate s/p stent placed this morning. After surgery, the pt has been unable to urinate and c/o pressure when trying to urinate with some bright red blood noticed. Last time urinating was this morning. Denies back pain, fevers, chills. Sx not aggravated or alleviated by anything. Right kidney stent placed by Dr. Shelton this morning. - History of Current Complaint Chief Complaint: EDUrogenitalProblems Time Seen by Provider: 08/20/17 19:39 Stated Complaint: POST SUGERY/UNABLE TO URINATE Hx Obtained From: Patient Onset/Duration: Started Hours Ago, Still Present Timing: Constant Pain Intensity: 7 Associated Signs and Symptoms: Positive: Other: - blood in urine, unable to urinate. Negative: Back Pain - Additional Pertinent History Primary Care Physician: [id number] - Allergy/Home Medications Allergies/Adverse Reactions: Allergies Allergy/AdvReac Type Severity Reaction Status Date / Time No Known Allergies Allergy Verified 08/20/17 19:08 Home Medications: Home Medications Rosuvastatin (NF) [Crestor (NF)] 20 mg PO QPM 08/20/17 [History Confirmed ] PMH/Surg Hx/FS Hx/Imm Hx Previously Healthy: No Endocrine/Hematology History: Reports: Other Endocrine/Hematological Disorders - Dyslipidemia, HLD Cardiovascular History: Reports: Hx Coronary Artery Disease - 2 stents, Hx Hypercholesterolemia, Hx Hypertension - on meds, Hx Myocardial Infarction Denies: Other Cardiovascular Problems/Disorders Respiratory History: Reports: Hx Sleep Apnea Denies: Other Respiratory Problems/Disorders GI History: Reports: Hx Gastroesophageal Reflux Disease, Other GI Disorders - Colitis History: Reports: Hx Kidney Stones - current and many years ago Denies: Other Problems/Disorders Musculoskeletal History: Denies: Other Musculoskeletal History Sensory History: Reports: Hx Contacts or Glasses - glasses, Hx Hearing Aid - moy Opthamlomology History: Reports: Hx Contacts or Glasses - glasses Neurological History: Denies: Other Neuro Impairments/Disorders Psychiatric History: Reports: Hx Depression - Surgical History Hx Anesthesia Reactions: No Infectious Disease History: No Infectious Disease History: Denies: Traveled Outside the [place] in Last 30 Days - Family History Known Family History: Positive: Cardiac Disease - [place] - mother in 70's, Hypertension - Social History Alcohol Use: Occasionally Alcohol Amount: Social drinking Hx Substance Use: No Substance Use Type: Reports: None Hx Tobacco Use: Yes Smoking Status (MU): Former Smoker Type: Cigarettes Amount Used/How Often: pack a day for 25 yrs Review of Systems Negative: Fever, Chills Negative: Erythema Negative: Sore Throat Negative: Chest Pain Negative: Shortness Of Breath, Cough Negative: Abdominal Pain, Vomiting, Nausea Positive: dysuria, other - unable to urinate, bright red blood, pressure when trying to void Negative: Myalgia, Edema Negative: Rash Neurological: Other - No dizziness All Other Systems Reviewed And Are Negative: Yes Physical Exam - Summary Physical Exam Summary: Constitutional: Well-developed, Well-nourished, Alert. (-) Distressed Skin: Warm, Dry HENT: Normocephalic; Atraumatic Eyes: Conjunctiva normal Neck: Musculoskeletal ROM normal neck. (-) JVD, (-) Stridor, (-) Tracheal deviation Cardio: Rhythm regular, rate normal, Heart sounds normal; Intact distal pulses; The pedal pulses are 2+ and symmetric. Radial pulses are 2+ and symmetric. (-) Murmur Pulmonary/Chest wall: Effort normal. (-) Respiratory distress, (-) Wheezes, (-) Rales Abd: Soft, (-), epigastric tenderness, (-) Distension, (-) Guarding, (-) Rebound Musculoskeletal: (-) Edema Lymph: (-) Cervical adenopathy Neuro: Alert, Oriented x3 Psych: Mood and affect Normal Triage Information Reviewed: Yes Vital Signs On Initial Exam: Initial Vitals Temp Pulse Resp BP Pulse Ox 98.3 F 95 17 132/83 94 08/20/17 19:08 08/20/17 19:08 08/20/17 19:08 08/20/17 19:08 08/20/17 19:08 Vital Signs Reviewed: Yes Diagnostics - Vital Signs Vital Signs Temp Pulse Resp BP Pulse Ox 08/20/17 19:08 98.3 F 95 17 132/83 94 - Laboratory Result Diagrams: 08/20/17 20:54 08/20/17 20:54 Lab Statement: Any lab studies that have been ordered have been reviewed, and results considered in the medical decision making process. Re-Evaluation - Re-Evaluation 1 Re-Evaluation Time: 22:55 Change: Improved - urine clear and free flowing. discuss plan to d/c GIGU Course/Dx - Course Assessment/Plan: Dr. Zuniga called [facility] to consult, recommend straight cath and d/ c. After pt visit, discussed case with Dr. Zuniga, who recommends pt given 1L normal saline. As long as catheter free flowing, then after hydration Dr. Zuniga recommends d/c and f/u at his office. On re-eval, pt's urine is clear and free- flowing. Pt will be d/c home with f/u with Dr. Shelton in 4 days, with a catheter. - Diagnoses Provider Diagnoses: Hematuria, Acute urinary retention, Post-op bleeding - Physician Notifications Discussed Care Of Patient With: Santiago Zuniga Time Discussed With Above Provider: 20:50 Instructed by Provider To: Other Discharge - Sign-Out/Discharge Documenting (check all that apply): Patient Departure - Discharge Plan Condition: Stable Disposition: HOME Patient Education Materials: Hematuria (ED), Postoperative Bleeding (ED), Urinary Retention in Men (ED) Referrals: Mann Shelton MD [Medical Doctor] - 4 Days (PLEASE F/U ON THURSDAY. CALL FOR AN APPOINTMENT) Additional Instructions: RETURN TO ED FOR RETURN/CHANGING SYMPTOMS
[2017-08-20] MEDS ORDERED: NS 0.9% 1000 ML* 1,000 ML IV ONE (20:46)
[2017-08-20 21:00] LABS: Hematocrit 38 % (42-52); Hemoglobin 13.2 g/dl (14.0-18.0); Mean Corpuscular HGB Conc 35 g/dl (31-36); Mean Corpuscular Hemoglobin 33 pg (27-31); Mean Corpuscular Volume 96 fL (80-94); Mean Platelet Volume 7.7 um3 (7.4-10.4); Platelet Count 173 10^3/ul (150-450); Red Blood Count 3.99 10^6/ul (4.00-5.40); Red Cell Distribution Width 12 % (10.5-15); White Blood Count 9.2 10^3/ul (3.5-10.8)
[2017-08-20 21:08] LABS: INR 1.02 (0.77-1.02)
[2017-08-21 00:06] VITALS: BP 155/79
== END 2017-08-21 00:04 | disposition home or self-care (01) ==
LOC: ED 18:58
DX: R33.9 Retention of urine, unspecified (principal); R31.9 Hematuria, unspecified; N99.820 Postprocedural hemorrhage of a genitourinary system organ or structure following a genitourinary system procedure; Z96.0 Presence of urogenital implants; Z87.891 Personal history of nicotine dependence
CPT/HCPCS: 36415; 80053; 85027; 85610; 85730; 99282

== ENCOUNTER 2017-11-02 11:49 | Day surgery (SDC) | payer MEDICARE ==
--- NOTE | 2017-10-26 09:43 | HP ---
CC: Dr. Kong * HISTORY AND PHYSICAL: DATE OF PLANNED ADMISSION AND SURGERY: 11/02/17. HISTORY OF PRESENT ILLNESS: Mr. Farris is a 77-year-old white male who is admitted with a right renal calculus for shockwave lithotripsy. Mr. Farris was treated for an obstructing right ureteral calculus and underwent right ureteroscopy and laser lithotripsy on 08/20/17. Postoperatively , and after removal of the stent, he was noted to have partial obstruction of the proximal right ureter at the site of the original stone. On work-up, this was noted to be secondary to either post-operative edema or early ureteral stricture and on 10/14/17, he underwent a right ureteroscopy, balloon dilation, and ureteral stent placement. The patient is known to have an 8 to 10 mm calculus in the lower pole calyx of the right kidney. Considering he will need the stent for another 3 to 4 weeks and that he will need treatment of his renal calculus, the patient is admitted for shockwave lithotripsy of the right renal calculus. PAST MEDICAL HISTORY AND SYSTEM REVIEW: Detailed in my earlier admissions. He has history of coronary artery disease, and he was cleared for the previous two procedures by Dr. Herrera, his dispatch associate at [facility]. The patient has been stable cardiac bingham. MEDICATIONS: He is maintained on the following medications: 1. Lisinopril 10 mg daily. 2. Metoprolol 50 mg daily. 3. Zoloft 25 mg daily. 4. Crestor 20 mg daily. 5. Omeprazole 20 mg daily. 6. Nitroglycerin as needed for chest pain. 7. He has been off the aspirin for 1 week in preparation for this procedure. PHYSICAL EXAMINATION GENERAL: He is a pleasant and healthy looking for age. VITAL SIGNS: Blood pressure 120/70. LUNGS: Clear. HEART: Regular and rhythmic. No murmurs. ABDOMEN: Soft. No masses. No tenderness and no CVA tenderness. IMPRESSION: 1. Status post placement of right ureteral stent. 2. Right renal calculus. 3. Coronary artery disease, stable. PLAN: Plan is for shockwave lithotripsy of the right renal calculus. I discussed the above. The plan is to keep his ureteral stent until about mid November. All his questions were answered. [id number]/[facility] #: [id number] [facility]
[~2017-11-02 11:49] MED LIST changes: +Famotidine IV* 10 MG/ML 2 ML (20 mg) IV ONE
[2017-11-02] MEDS ORDERED: cefTRIAXone(*) 1 GM ADVAN/BAG ONE (12:13)
[2017-11-02] MEDS ORDERED: Famotidine IV* 10 MG/ML 2 ML (20 mg) ONE (12:13)
[2017-11-02] MEDS ORDERED: fentaNYL* 50 MCG/ML 2 ML VIAL (100 MCG VIAL) ONE (13:55)
[2017-11-02] MEDS ORDERED: Midazolam* 1 MG/ML 5 ML VIAL (5 MG) ONE (13:55)
--- NOTE | 2017-11-02 14:28 | RAD ---
Indication: Post shockwave lithotripsy RIGHT side. Comparison: October 08, 2017 CT Technique: Supine view of the abdomen. REPORT AND IMPRESSION: #. 1.0 cm maximum dimension stone at the level of the midpole calyx of the RIGHT kidney without change. No suspicious calcifications along the course of the RIGHT ureteral stent. Unremarkable soft tissue contours and bowel gas pattern.
[2017-11-02] MEDS ORDERED: Ondansetron INJ* 2 MG/ML VIAL ONE (15:31)
[2017-11-02] MEDS ORDERED: EPHEDrine (Pressors)* 50 MG/ML VIAL ONE (15:31)
[2017-11-02] MEDS ORDERED: Propofol* 10 MG/ML 20 ML BTL IV PUSH ONE (15:31)
[2017-11-02] MEDS ORDERED: Dexamethasone IV* 4 MG/ML 1 ML (4 MG) ONE (15:31)
[2017-11-02] MEDS ORDERED: Lidocaine 2% PF * 5 ML VIAL ONE (15:32)
[2017-11-02] MEDS ORDERED: DiMENhydriNATE IV* 50 MG/ML VIAL IV PUSH PRN (16:24)
[2017-11-02] MEDS ORDERED: Acetaminophen TAB* 325 MG PO PRN (16:24)
[2017-11-02 17:25] VITALS: BP 111/69
--- NOTE | 2017-11-03 04:29 | OP ---
CC: Dr. Kong * DATE OF OPERATION: 11/02/17 - [facility] DATE OF : 42 SURGEON: Dr. Shelton. ANESTHESIOLOGIST: Kala Padilla MD ANESTHESIA: General. PRE-OP DIAGNOSES: 1. Right renal calculus (1 cm). 2. Status post placement of right ureteral stent. POST-OP DIAGNOSES: 1. Right renal calculus (1 cm). 2. Status post placement of right ureteral stent. OPERATIVE PROCEDURE: Shockwave lithotripsy of right renal calculus (lower pole , 1 cm). INDICATIONS FOR PROCEDURE: Mr. Farris is a 77-year-old white male who was treated for an obstructing proximal right ureteral calculi. He was noted at that time to have a 1 cm calculus in the lower pole calyx of the right kidney. The patient developed partial stricture of the proximal right ureter and had recent balloon dilation and stent placement. The patient is now brought in for treatment of the right renal calculus. PATHOLOGY: Preoperative KUB showed the stent in good position and 1 cm radiopaque calculus in the lower pole calyx of the right kidney. DESCRIPTION OF PROCEDURE: After successful general anesthesia, the patient was placed in the supine position on the shockwave lithotripsy table. The right renal calculus was visualized in both the PA and oblique x-ray views, and the position of the patient and of the generator were adjusted to have the stone in the focus of the shock waves. A total of 2,000 shocks were then delivered at a rate of 60 shocks per minute. A 3 minute break was taken after the initial 300 shocks. The proper positioning and fragmentation of the stone were monitored periodically. At the completion of the treatment, there was very good fragmentation of the stone with the stone fragments taking the shape of the lower pole mary and a portion of the lower pole infundibulum. The patient tolerated the procedure well and left the operating room in good condition. [id number]/[facility] #: [id number] [facility]ITALTim
== END 2017-11-02 17:27 | disposition home or self-care (01) ==
LOC: OR 11:49
PROVIDERS: ATTEND Urology
DX: N20.0 Calculus of kidney (principal); I25.10 Atherosclerotic heart disease of native coronary artery without angina pectoris; Z95.5 Presence of coronary angioplasty implant and graft; G47.33 Obstructive sleep apnea (adult) (pediatric)
CPT/HCPCS: 74018; J0696; J1100; J2250; J2405; J2704; J3010

== ENCOUNTER 2018-01-06 06:48 | Day surgery (SDC) | payer MEDICARE ==
--- NOTE | 2017-12-29 23:51 | HP ---
HISTORY AND PHYSICAL: DATE OF PLANNED ADMISSION AND SURGERY: 01/06/18 HISTORY OF PRESENT ILLNESS: Mr. Farris is a 77-year-old white male who is admitted with right hydronephrosis, right ureteral calculi, and possible recurrence of right ureteral stricture for cystoscopy, right ureteroscopy, laser lithotripsy and right ureteral stent placement. Mr. Farris presented 4 months ago with symptoms of right renal colic and was noted on a CT of the abdomen and pelvis to have a 1 cm nonobstructing calculus in the lower pole calyx of the right kidney and 2 calculi measuring a total of about 1.5 cm located in the mid right ureter. At that time, the patient underwent an uncomplicated right ureteroscopy, laser lithotripsy, and extraction of the right ureteral calculi with a placement of right ureteral stent. Following removal of the ureteral stent and on followup renal ultrasound, he was noted to have right hydronephrosis with the obstruction at the level where the ureteral calculi were located. The patient was taken to the operating room on 10/14/17 and underwent a cystoscopy, right retrograde pyelography which showed a partial stricture of the ureter at the level where the stones were located. He underwent balloon dilation of the stricture which went very easily and there was full dilation of the ureter without any waisting. An 8.5 Fr stent was placed. On 11/02/17, he underwent shockwave lithotripsy of the residual 1 cm calculus in the lower pole calyx of the right kidney. The stent was removed a week later. He did very well; however, follow-up renal ultrasound showed small residual stone fragments in the lower pole of right kidney, and right hydronephrosis with a cluster of stones measuring about 8 mm in the mid ureter at the site of the original stricture. Because of that finding, the patient is admitted for right ureteroscopy, laser lithotripsy and right ureteral stent placement. PAST MEDICAL HISTORY AND SYSTEM REVIEW: The patient has history of coronary artery disease and he was cleared for his previous procedures by his security orderly, Dr. Herrera. He has been stable cardiac bingham and has no cardiac symptoms. He is hypertensive and has hyperlipidemia, on treatment. MEDICATIONS: He is maintained on the following medications. 1. Lisinopril 10 mg daily. 2. Metoprolol 50 mg daily. 3. Zoloft 25 mg daily. 4. Crestor 20 mg daily. 5. Omeprazole 20 mg daily. 6. Nitroglycerin as needed for chest pain. 7. Baby aspirin daily. ALLERGIES: He denies any allergies to medications. FAMILY HISTORY: Negative for renal diseases. SOCIAL HISTORY: He is a nonsmoker. PHYSICAL EXAMINATION GENERAL: He is a pleasant and healthy looking white male who looks good for his age. VITAL SIGNS: Blood pressure 126/80, pulse of 64. LUNGS: Clear. HEART: Regular and rhythmic. No murmurs. ABDOMEN: Soft. No masses, no tenderness and no CVA tenderness. Extremities: No edema. IMPRESSION: 1. Recurrent right hydronephrosis with a cluster of calculi in the mid right ureter. 2. Past history of right ureteral stricture, status post balloon dilation. 3. Coronary artery disease, stable. PLAN: Cystoscopy, right ureteroscopy, laser lithotripsy and extraction of the stone fragments and the placement of right ureteral stent. The cause of the obstruction could be the stone fragments with or without recurrence of the right ureteral stricture. I discussed the above plans with the patient and his family and all their questions were answered. They understand that the stricture might recur, and in that case, he might need additional treatments for it. [id number]/[facility] #: [id number] MTDD
[~2018-01-06 06:48] MED LIST changes: +Famotidine IV* 10 MG/ML 2 ML (20 mg) ONE; +cefTRIAXone(*) 1 GM ADVAN/BAG ONE
[2018-01-06] MEDS ORDERED: Iohexol 180 (CONTRAST) 10 ML SDV IV ONE ×2 (06:53→08:28)
[2018-01-06] MEDS ORDERED: Midazolam* 1 MG/ML 5 ML VIAL (5 MG) ONE (07:26)
[2018-01-06] MEDS ORDERED: fentaNYL* 50 MCG/ML 2 ML VIAL (100 MCG VIAL) ONE (07:26)
[2018-01-06] MEDS ORDERED: Ondansetron INJ* 2 MG/ML VIAL ONE (07:51)
[2018-01-06] MEDS ORDERED: Ketorolac INJ* 30 MG/ML 1 ML VIAL ONE (07:51)
[2018-01-06] MEDS ORDERED: Propofol* 10 MG/ML 20 ML BTL ONE (07:51)
[2018-01-06] MEDS ORDERED: Dexamethasone IV* 4 MG/ML 1 ML (4 MG) ONE (07:51)
[2018-01-06] MEDS ORDERED: Lidocaine 2% PF * 5 ML VIAL ONE (07:52)
[2018-01-06] MEDS ORDERED: oxyCODONE TAB* 5 MG TAB PO PRN (07:57)
[2018-01-06] MEDS ORDERED: HYDROmorphone INJ1* 1 MG/ML SYRINGE IV PRN (07:57)
[2018-01-06] MEDS ORDERED: Naloxone* 0.4 MG/ML 1 ML VIAL IV PRN (07:57)
[2018-01-06] MEDS ORDERED: Acetaminophen TAB* 325 MG PO PRN (07:57)
[2018-01-06] MEDS ORDERED: DiMENhydriNATE IV* 50 MG/ML VIAL IV PUSH PRN (07:57)
[2018-01-06] MEDS ORDERED: EPHEDrine (Pressors)* 50 MG/ML VIAL ONE (08:11)
[2018-01-06 09:43] VITALS: BP 124/66
--- NOTE | 2018-01-07 04:31 | OP ---
CC: Dr. Kong * DATE OF OPERATION: 01/06/18 - [facility] DATE OF : 42 SURGEON: Dr. Shelton. ANESTHESIOLOGIST: Dr. Padilla. ANESTHESIA: General. PRE-OP DIAGNOSES: 1. Right hydronephrosis. 2. Right ureteral calculi. 3. Rule out right ureteral stricture. POST-OP DIAGNOSES: 1. Right hydronephrosis. 2. Right ureteral calculi. 3. Right ureteral stricture. OPERATIVE PROCEDURE: 1. Cystoscopy. 2. Right ureteroscopy and pyeloscopy. 3. Laser lithotripsy and extraction of right renal and ureteral calculi. 4. Right retrograde pyelography and placement of right ureteral stent (black silicone, 8.5-Kenyan, 24 cm long). INDICATION FOR PROCEDURE: Mr. Farris is a 77-year-old white male who presented 4 months ago with 2 obstructing calculi in the mid right ureter, and a non obstructing 1 cm calculus in the lower pole mary of the right kidney. He underwent a right ureteroscopy, laser lithotripsy, and stent placement. The procedure went smoothly. After the stent removal, the patient was noted to have developed a stricture of the ureter at the site of the original calculi. He then underwent balloon dilation of the stricture with the placement of a stent. He then underwent shockwave lithotripsy of the residual right renal calculus with good fragmentation and the stent was removed in the office afterwards. He remained asymptomatic; but on followup renal ultrasound, he was noted to have developed right hydroureteronephrosis with a cluster of calculi in the mid ureter at the level where the original ureteral stricture was noted. Because of the above history and finding, the patient was brought in for the above procedure. PATHOLOGY: At cystoscopy, the penile and bulbar urethrae looked normal. The prostatic urethra measured 2.5 cm in length and there was moderate degree of obstruction by prostate enlargement. There was again noted a false passage posterior to the prostatic urethra that was seen on his original cystoscopy 4 months ago. Examination of the bladder showed normal mucosa. There were no suspicious bladder lesions seen. No calculi or diverticula were noted. Upon right retrograde pyelography, there was a tight stricture noted in the mid ureter. The stricture measured about half a centimeter in length. Upon right ureteroscopy, the lumen of the strictured portion of the ureter was difficult to visualize. It was successfully intubated with the guidewire and the ureteroscope was introduced without difficulty over the guidewire. Cluster of calculi were noted just proximal to the stricture. Some of the fragments also had migrated into the renal pelvis. No other abnormalities were noted. DESCRIPTION OF PROCEDURE: After successful general anesthesia, the patient was placed in the lithotomy position and was prepped and draped for cystoscopy. Cystoscopy was performed. The findings in the prostatic urethra and in the bladder were noted. A flexible tip guidewire was then introduced into the right orifice; however, it coiled at the level of the mid ureter where the stricture was noted. A Glidewire was used and the stricture could not be bypassed. A size 6.5 semirigid ureteroscope was then passed inside the bladder. The Glidewire was introduced through the port of the ureteroscope and was introduced into the right ureter allowing the atraumatic introduction of the ureteroscope inside the ureter. The site of the stricture was identified. After multiple attempts, the Glidewire was successfully passed through the strictured segment and positioned in the area of the renal pelvis. A size 5- Kenyan open-ended catheter was then fed on top of the Glidewire and positioned in the area of the renal pelvis and the Glidewire was exchanged with the guidewire. The ureteroscope was then reintroduced inside the bladder and was passed inside the ureter. The site of the stricture was again noted and was easily bypassed with the ureteroscope. The stone fragments were noted proximal to the stricture. Some of the fragments migrated into the renal pelvis. Using the holmium laser, some of the larger fragments were broken into multiple pieces. Using a flexible tip basket, the stone fragments in the ureter were extracted. The ureteroscope was then introduced inside the renal pelvis and the fragments in the renal pelvis were also extracted. Retrograde pyelography was then performed. A black silicone stent, 8.5-Kenyan, 24 cm long was then placed with the proximal end coiling in the renal pelvis and the distal end coiling inside the bladder. There was good drainage of contrast from the kidney and no extravasation. The patient tolerated the procedure well and left the operating room in good condition. The plan is to keep the stent in place for about 6 weeks. If the stricture recurs, the patient will need a more definitive treatment. [id number]/[facility] #: [id number] [facility]ITALTim
== END 2018-01-06 10:33 | disposition home or self-care (01) ==
LOC: OR 06:48
PROVIDERS: ATTEND Urology
DX: N13.2 Hydronephrosis with renal and ureteral calculous obstruction (principal); N13.1 Hydronephrosis with ureteral stricture, not elsewhere classified; I25.10 Atherosclerotic heart disease of native coronary artery without angina pectoris; I10 Essential (primary) hypertension; E78.5 Hyperlipidemia, unspecified; Z95.5 Presence of coronary angioplasty implant and graft; I25.2 Old myocardial infarction; Z87.891 Personal history of nicotine dependence
CPT/HCPCS: 74420; 82365; 88300; C1876; J0696; J1100; J1885; J2250; J2405; J2704; J3010

== ENCOUNTER 2018-03-26 11:16 | Observation (INO) | payer MEDICARE ==
[2018-03-26] MEDS ORDERED: NS 0.9% 1000 ML** 1,000 ML IV ONE (12:10)
[2018-03-26] MEDS ORDERED: Ondansetron INJ* 2 MG/ML VIAL IV ONE (12:13)
[2018-03-26] MEDS ORDERED: Meclizine TAB* 12.5 MG PO ONE (12:13)
--- NOTE | 2018-03-26 12:24 | ED ---
Dizziness - HPI Summary HPI Summary: Pt is a 77 y/o M presenting to the ED with a chief complaint of dizziness onset this morning around 0730 and worse with movement. Hes had this problem before and he thought it was vertigo, but it was two blockages in his heart, so hehad two stents put in. The pt reports mild nausea. The pt denies dehydration, chest pain, sob, tinnitus. - History Of Current Complaint Chief Complaint: EDDizziness Stated Complaint: DIZZY, VOMITING,HEADACHE Time Seen by Provider: 03/26/18 11:42 Hx Obtained From: Patient Onset/Duration: Gradually Timing: Intermittent Episode Lasting Severity Initially: Mild Severity Currently: Mild Character: Dizzy Aggravating Factor(s): Change In Head Position Alleviating Factor(s): Rest Associated Signs And Symptoms: Positive: Nausea. Negative: Tinnitus, Chest Pain , SOB - Allergies/Home Medications Allergies/Adverse Reactions: Allergies Allergy/AdvReac Type Severity Reaction Status Date / Time ezetimibe [From Zetia] Allergy Unknown Verified 01/06/18 06:20 Reaction Details PMH/Surg Hx/FS Hx/Imm Hx Previously Healthy: No Endocrine/Hematology History: Reports: Other Endocrine/Hematological Disorders - Dyslipidemia, HLD Denies: Hx Bone Marrow Disease, Hx Sickle Cell Disease Cardiovascular History: Reports: Hx Angina - DX, Hx Coronary Artery Disease - 2 stents 09/2016 [facility], Hx Hypercholesterolemia, Hx Hypertension - on meds, Hx Myocardial Infarction, Other Cardiovascular Problems/Disorders - hyperlipidemia Respiratory History: Reports: Hx Sleep Apnea - won't use CPAP Denies: Other Respiratory Problems/Disorders GI History: Reports: Hx Gastroesophageal Reflux Disease, Other GI Disorders - ulcerative colitis, lower GI bleed 07/21 History: Reports: Hx Kidney Stones - right kidney. RT STENT 01/06/18., Hx Renal Disease - RT URETERAL STRICTURE. RT STENT. Denies: Other Problems/Disorders Musculoskeletal History: Reports: Other Musculoskeletal History - 12/16 fx lateral mallelous Sensory History: Reports: Hx Contacts or Glasses - glasses, Hx Hearing Aid - bilateral Denies: Hx Cataracts - right eye- mild Opthamlomology History: Reports: Hx Contacts or Glasses - glasses Denies: Hx Cataracts - right eye- mild Neurological History: Reports: Other Neuro Impairments/Disorders - hx vertigo before stent placed, ok since Psychiatric History: Reports: Hx Depression - ok now - Surgical History Surgery Procedure, Year, and Place: appendectomy, 1967, [facility]. cardiac stents, 2017, [facility]. left cataract extraction with IOL implant 09/2016 [place] [facility] [place] [facility] [place] [facility] [place] Anesthesia Reactions: No Infectious Disease History: No Infectious Disease History: Denies: Traveled Outside the [place] in Last 30 Days - Family History Known Family History: Positive: Cardiac Disease - [place] - mother in 70's, Hypertension - Social History Alcohol Use: Occasionally Alcohol Amount: 8 drinks/month Hx Substance Use: No Substance Use Type: Reports: None Hx Tobacco Use: Yes Smoking Status (MU): Former Smoker Type: Cigarettes Amount Used/How Often: 1 ppd for 25 yrs Length of Time of Smoking/Using Tobacco: 25 yrs Have You Smoked in the Last Year: No Review of Systems Negative: Fever Negative: Chest Pain Negative: Shortness Of Breath Positive: Nausea All Other Systems Reviewed And Are Negative: Yes Physical Exam - Summary Physical Exam Summary: GENERAL: Patient is a well-developed and nourished M who is lying comfortable in the stretcher. Patient is not in any acute respiratory distress. HEAD AND FACE: Normocephalic EYES: PERRLA, EOMI x 2. Mild horizontal nystagmus EARS: Hearing grossly intact. MOUTH: Oropharynx within normal limits. NECK: Supple, trachea is midline, no adenopathy, no JVD, no carotid bruit. CHEST: Symmetric, no tenderness at palpation LUNGS: Clear to auscultation bilaterally. No wheezing or crackles. CVS: Regular rate and rhythm, S1 and S2 present, no murmurs or gallops appreciated. ABDOMEN: Soft, non-tender. Bowel sounds are normal. No abdominal abnormal pulsations. EXTREMITIES: Full ROM in all major joints, no edema, no cyanosis or clubbing. NEURO: Alert and oriented x 3. No acute neurological deficits. Speech is normal and follows commands. SKIN: Dry and warm GCS: 15 Triage Information Reviewed: Yes Vital Signs On Initial Exam: Initial Vitals Temp Pulse Resp BP Pulse Ox 96.6 F 55 18 174/80 97 03/26/18 11:17 03/26/18 11:17 03/26/18 11:17 03/26/18 11:17 03/26/18 11:17 Vital Signs Reviewed: Yes Diagnostics - Vital Signs Vital Signs Temp Pulse Resp BP Pulse Ox 03/26/18 11:17 96.6 F 55 18 174/80 97 - Laboratory Result Diagrams: 03/26/18 12:23 03/26/18 12:23 Lab Statement: Any lab studies that have been ordered have been reviewed, and results considered in the medical decision making process. - Radiology Chest x-ray Radiology Interpretation Completed By: Radiologist Summary of Radiographic Findings: No active cardiopulmonary disease. ED physician has reviewed this report. - CT Brain CT CT Interpretation Completed By: Radiologist Summary of CT Findings: No acute intracranial pathology. ED physician has reviewed this report. - EKG 1138 Cardiac Rate: Bradycardia - 49bpm EKG Rhythm: Sinus Bradycardia ST Segment: Normal Ectopy: None Summary of EKG Findings: L-axis deviation. Re-Evaluation - Re-Evaluation 1st re-eval Re-Evaluation Time: 13:32 Change: Unchanged Comment: The pt is presently still very dizzy, and I will be calling the hospitalist to admit him to [facility]. Dizzy Course/Dx - Course Course Of Treatment: Pt is a 77 y/o M presenting to the ED with a chief complaint of dizziness onset this morning around 0730 and worse with movement. Hes had this problem before and he thought it was vertigo, but it was two blockages in his heart, so hehad two stents put in. The pt reports mild nausea. The pt denies dehydration, chest pain, sob, tinnitus. Brain CT and chest x-ray were both negative. His EKG showed sinus bradycardia at 49bpm but otherwise normal. As of 1331, the pt is still dizzy. Case discussed with hospitalist. I discussed results with patient. The patient agrees with this plan. - Diagnoses Provider Diagnoses: Bradycardia, Dizziness Discharge - Sign-Out/Discharge Documenting (check all that apply): Patient Departure - Discharge Plan Condition: Stable Disposition: ADMITTED TO [facility] Referrals: Gerald Kong MD [Primary Care Provider] - - Attestation Statements Document Initiated by Scribe: Yes Documenting Scribe: Edna Dugan Provider For Whom Scribe is Documenting (Include Credential): Joshua Neumann MD. Scribe Attestation: I, Edna Dugan, scribed for Joshua Neumann MD. on 03/26/18 at 1343. Consult Consult: [id number] - Spoke with Dr. Mata about the pt's present condition who will be the accepting physician to [facility]. He also recommended that I try atropine.
[2018-03-26 12:31] LABS: ABS Basophils 0 10^3/ul (0-0.2); ABS Eosinophils 0.1 10^3/ul (0-0.6); ABS Monocytes 0.3 10^3/ul (0-0.8); ABS Neutrophils 4.3 10^3/ul (1.5-7.7); ABS Nucleated RBC 0 10^3/ul; Eosinophil % 1.3 %; Hematocrit 40 % (42-52); Hemoglobin 13.6 g/dl (14.0-18.0); Mean Corpuscular HGB Conc 34 g/dl (31-36); Mean Corpuscular Hemoglobin 33 pg (27-31); Mean Corpuscular Volume 96 fL (80-94); Mean Platelet Volume 7.8 fL (7.4-10.4); Nucleated Red Blood Cells % 0.1; Platelet Count 170 10^3/ul (150-450); Red Blood Count 4.17 10^6/ul (4.00-5.40); Red Cell Distribution Width 13 % (10.5-15); White Blood Count 5.6 10^3/ul (3.5-10.8)
[2018-03-26 12:50] LABS: Albumin 4.3 g/dL (3.2-5.2); Albumin/Globulin Ratio 1.4 (1-3); BUN/Creatinine Ratio 18.6 (8-20); EGFR African American 85.9 (>60); Globulin 3.1 g/dL (2-4); Potassium 3.9 mmol/L (3.5-5.0); Total Bilirubin 0.5 mg/dL (0.2-1.0); Total Protein 7.4 g/dL (6.4-8.9)
[2018-03-26 12:52] LABS: Activated Partial Thrombo Time 32.7 seconds (26.0-36.3); INR 0.97 (0.77-1.02)
[2018-03-26] MEDS ORDERED: Atropine 1MG/ML INJ* 1 ML VIAL IV PUSH ONE (13:41)
[2018-03-26] MEDS ORDERED: Atropine SYRINGE* 0.1 MG/ML 10 ML SYRINGE (1 MG) ONE (13:50)
[2018-03-26] MEDS ORDERED: Acetaminophen TAB* 325 MG PO ONE (16:08)
[2018-03-26] MEDS ORDERED: Acetaminophen TAB* 325 MG ONE (16:10)
[2018-03-26] MEDS ORDERED: Ondansetron INJ* 2 MG/ML VIAL IV PRN (16:17)
--- NOTE | 2018-03-26 18:19 | HP ---
ADMITTING HISTORY AND PHYSICAL: DATE OF ADMISSION: 03/26/18 PLUMBER APPRENTICE: Dr. Herrera. CHIEF COMPLAINT: Dizziness. HISTORY OF PRESENT ILLNESS: The patient is a 77-year-old gentleman with history of CAD, status post PCI and previous IL back in the , stent placement just back in September of 2016; COPD; and AFib. At around 7:30 in the morning when he was getting up off bed, he became dizzy and mentioned that he felt that the room was spinning around him. He mentioned that he became nauseated and vomited once. He mentioned that when he had chest pain and angina a year ago that led to his stenting, his presentation was vertigo, and naturally , he was concerned that this might be a symptom leading to another heart attack. He mentions that his vertigo is worsened by head movement and persistence of his signs and symptoms led to his presentation in the ED, at which point he received 1 L normal saline bolus, 25 mg dose of meclizine, ondansetron, and one time Tylenol. PAST MEDICAL AND SURGICAL HISTORY: Coronary artery disease, status post IL in 1995 and status post stent placement/PCI in September 2016, his pharmaceutical sales specialist is Dr. Herrera; hypertension; hyperlipidemia; right nephrolithiasis, status post ureteral stent placement; ulcerative colitis, on Lialda; status post appendectomy; DANIE, not on CPAP, refused CPAP in the past. HOME MEDICATIONS: As follows: 1. Mesalamine. 2. Sertraline. 3. Metoprolol. 4. Lisinopril. 5. Cholecalciferol. 6. Omeprazole. 7. Aspirin. ALLERGIES: To EZETIMIBE. FAMILY HISTORY: Noncontributory. SOCIAL HISTORY: Denies any history of smoking or drug abuse. REVIEW OF SYSTEMS: He complains of headache about 6/10 on the pain scale that is distributed from his frontal area to the occipital area in the middle. Could not identify any exacerbating or alleviating factors. Dizziness/vertigo as described above worsened with head movement. Denies any fevers, chills. He does complain of some nausea and vomited twice early this morning and is still nauseated. Denies any chest pain, shortness of breath, abdominal pain, diarrhea , constipation, pain and/or increased frequency on urination, myalgias, arthralgias, throat pain, or new skin lesions. The rest of the 14-point review of systems is otherwise unremarkable. PHYSICAL EXAMINATION GENERAL APPEARANCE: The patient is awake, alert, and oriented x3, not in acute distress. VITAL SIGNS: The most recent vital signs of record with blood pressure of 143/ 69, 57 beats per minute heart rate, 13 per minute respiratory rate, saturating at 92%. HEENT: Normocephalic, atraumatic. PERRLA. Extraocular muscles intact. Negative for icterus. Moist oral mucosa. Negative throat erythema. NECK: Soft, supple with no cervical lymphadenopathy, no JVD. CHEST: Clear to auscultation bilaterally. Good air entry. No wheezes, rales, or rhonchi. HEART: S1, S2, within normal limits. Regular rate and rhythm. No murmurs, rubs, or gallops. ABDOMEN: Soft, nondistended, nontender. Normoactive bowel sounds x4 quadrants. EXTREMITIES: No cyanosis, clubbing, or edema. PSYCHIATRIC: No active psychosis, depression, suicidal or homicidal ideation. SKIN: Warm to touch. DIAGNOSTIC STUDIES/LAB DATA: Most recent and pertinent laboratories drawn show CBC with WBC that is normal along with platelets. He does have some mild anemia which is relatively stable. Sodium and potassium, BUN and creatinine were all found to be normal along with LFTs as well as chest x-ray. BNP of 145. Brain CT: No acute changes or findings found. EKG shows sinus bradycardia at a rate of 49. ASSESSMENT AND PLAN: The patient is a 77-year-old gentleman with history of obstructive sleep apnea, coronary artery disease, status post stent placement and history of myocardial infarction who was admitted for dizziness/ vertigo. 1. Dizziness, likely secondary to benign paroxysmal positional vertigo as the patient's symptoms worsened with head movement. However, he is concerned that similar symptoms led to the discovery of significant coronary artery disease and is concerned about a possibility of myocardial infarction given his similar symptoms. Therefore at this time, we will place the patient on meclizine and we will trend troponins to rule out acute coronary syndrome. We will continue watchful waiting. We will also ask for nursing staff to obtain orthostatic vital signs and we will continue watchful waiting. It is also possible that given his mild bradycardia that some of this may be causing his dizziness. I will therefore decrease his metoprolol succinate by half to 25 and we will continue watchful waiting. 2. Headache. We will place the patient on p.r.n. Tylenol. Possibly secondary to #1. 3. Anemia, stable. We will check iron studies, B12, and folate levels. 4. Coronary artery disease with history of myocardial infarction and status post percutaneous coronary intervention. We will continue aspirin, lisinopril, metoprolol. I am unclear as to why the patient is not on statins at this time. We will check fasting lipid levels in a.m. to make sure that his LDL is at goal. 5. Ulcerative colitis. Continue Lialda. 6. Hypertension. Continue lisinopril and metoprolol as described above. 7. Depression, well controlled. The patient denies any suicidal or homicidal ideation. Continue sertraline. 8. Gastroesophageal reflux disease. Continue omeprazole. 9. Sinus bradycardia. Please see above discussion. 10. DVT prophylaxis: We will place the patient on heparin subcu as ordered. 11. Disposition: For PT eval in a.m. [id number]/[facility] #: [id number] FRANNIE
[2018-03-26] MEDS: Acetaminophen TAB* 325 MG PO PRN (20:10)
[2018-03-26] MEDS: Meclizine TAB* 12.5 MG PO SCH (20:11)
[2018-03-26] MEDS: Heparin VIAL(*) 5000 UNITS/ML VIAL (FIVE THOUSAND) SUBCUT SCH (20:11)
[2018-03-27] MEDS: Meclizine TAB* 12.5 MG PO SCH (05:27)
[2018-03-27] MEDS: Acetaminophen TAB* 325 MG PO PRN (05:52)
[2018-03-27 07:20] LABS: ABS Basophils 0 10^3/ul (0-0.2); ABS Eosinophils 0.2 10^3/ul (0-0.6); ABS Lymphocytes 1.7 10^3/ul (1.0-4.8); ABS Monocytes 0.4 10^3/ul (0-0.8); ABS Neutrophils 2.8 10^3/ul (1.5-7.7); ABS Nucleated RBC 0 10^3/ul; Eosinophil % 3.4 %; Hematocrit 36 % (42-52); Hemoglobin 12.2 g/dl (14.0-18.0); Lymphocyte % 33.6 %; Mean Corpuscular HGB Conc 34 g/dl (31-36); Mean Corpuscular Hemoglobin 33 pg (27-31); Mean Corpuscular Volume 95 fL (80-94); Mean Platelet Volume 8.1 fL (7.4-10.4); Nucleated Red Blood Cells % 0.1; Platelet Count 161 10^3/ul (150-450); Red Blood Count 3.72 10^6/ul (4.00-5.40); Red Cell Distribution Width 13 % (10.5-15); White Blood Count 5.1 10^3/ul (3.5-10.8)
[2018-03-27 07:41] LABS: Albumin 3.5 g/dL (3.2-5.2); Albumin/Globulin Ratio 1.3 (1-3); BUN/Creatinine Ratio 15.7 (8-20); Calcium 8.9 mg/dL (8.6-10.3); EGFR African American 85.7 (>60); EGFR Non-African American 70.8 (>60); Globulin 2.6 g/dL (2-4); HDL Cholesterol 30.2 mg/dL; Potassium 3.7 mmol/L (3.5-5.0); Total Bilirubin 0.5 mg/dL (0.2-1.0); Total Protein 6.1 g/dL (6.4-8.9)
[2018-03-27] MEDS ORDERED: Mesalamine (NF) 1.2 GM TAB PO SCH (08:30)
[2018-03-27] MEDS: Heparin VIAL(*) 5000 UNITS/ML VIAL (FIVE THOUSAND) SUBCUT SCH (08:44)
[2018-03-27] MEDS ORDERED: Aspirin EC TAB* 81 MG TAB.EC PO SCH (09:00)
[2018-03-27] MEDS ORDERED: Pantoprazole TAB * 40 MG TAB PO SCH (09:00)
[2018-03-27] MEDS ORDERED: Cholecalciferol TAB* 1000 UNITS PO SCH (09:00)
--- NOTE | 2018-03-27 11:19 | PN ---
Subjective Date of Service: 03/27/18 Interval History: Patient states he feels well. His dizziness has completed resolved. He denies other complaint and is eager for discharge to home. Objective Active Medications: Acetaminophen (Tylenol Tab*) 650 mg PO Q6H PRN Aspirin (Aspirin Ec Tab*) 81 mg PO DAILY DORIAN Cholecalciferol (Vitamin D Tab*) 1,000 units PO QAM DORIAN Heparin Sodium (Porcine) (Heparin Vial(*)) 5,000 units SUBCUT Q12HR DORIAN Lisinopril (Prinivil Tab*) 10 mg PO 1600 DORIAN Meclizine HCl (Antivert Tab*) 25 mg PO Q8HR DORIAN Mesalamine (Lialda (Nf)) 4.8 gm PO DAILY WITH MEAL DORIAN Metoprolol Succinate (Toprol Xl Tab*) 25 mg PO 1600 DORIAN Ondansetron HCl (Zofran Inj*) 4 mg IV Q6H PRN Pantoprazole Sodium (Protonix Tab*) 40 mg PO QAM DORIAN Sertraline HCl (Zoloft*) 25 mg PO 1600 DORIAN Vital Signs: Temp Pulse Resp BP Pulse Ox 97.6 F 56 16 138/73 96 03/27/18 03:20 03/27/18 03:20 03/27/18 03:20 03/27/18 03:20 03/27/18 03:20 Oxygen Devices in Use Now: None Appearance: Male sitting up in bed in NAD Eyes: No Scleral Icterus Ears/Nose/Mouth/Throat: Mucous Membranes Moist Neck: NL Appearance and Movements; NL JVP Respiratory: Symmetrical Chest Expansion and Respiratory Effort, Clear to Auscultation Cardiovascular: NL Sounds; No Murmurs; No JVD, No Edema Abdominal: NL Sounds; No Tenderness; No Distention Extremities: No Edema Skin: No Rash or Ulcers Neurological: Alert and Oriented x 3, NL Muscle Strength and Tone Nutrition: Taking PO's Result Diagrams: 03/27/18 07:01 03/27/18 07:01 Assess/Plan/Problems-Billing Assessment: Mr. Farris is a 78 yo male with a PMH of CAD with stents, COPD and afib who was admitted on 03/26/18 with headache and vertigo. - Patient Problems (1) Vertigo Comment: - Resolved - Hx of same in 2017 - Describes runny nose and symptoms of a head cold, now resolved. Suspect vertigo related to vestibulitis. (2) CAD (coronary artery disease) Comment: - Asymptomatic - Continue aspirin, metoprolol and lisinopril - HR runs 60-70s, one time HR 48 noted, do not think explains vertigo, encouraged patient to monitor HR at home if he is not feeling well (lightheaded , dizzy) (3) COPD (chronic obstructive pulmonary disease) Comment: - Asymptomatic (4) Afib Comment: - Continue metoprolol (5) HTN (hypertension) Comment: Continue metoprolol, lisinopril. (6) Ulcerative colitis Comment: Continue mesalamine. (7) DVT prophylaxis Comment: - Continue heparin SQ (8) Full code status Comment: Status and Disposition: OBV. Discharge to home
[2018-03-27 11:34] VITALS: BP 147/71
--- NOTE | 2018-03-27 15:27 | DS ---
CC: Dr. Kong; Dr. Herrera * HOSPITAL MEDICINE DISCHARGE SUMMARY: DATE OF ADMISSION: 03/26/18 DATE OF DISCHARGE: 03/27/18 PRIMARY CARE PHYSICIAN: Dr. Kong. TAXICAB STARTER: Dr. Herrera. ATTENDING PHYSICIAN: Dr. Carrillo * (dictation provided by Tess Kaplan NP). PRIMARY DIAGNOSIS: Vertigo, now resolved. SECONDARY DIAGNOSES: 1. History of coronary artery disease with stent placement. 2. Chronic obstructive pulmonary disease. 3. Question atrial fibrillation, although not confirmed per record. MEDICATIONS AT THE TIME OF DISCHARGE: 1. Metoprolol succinate 25 mg p.o. daily (new lower dose due to bradycardia). 2. Aspirin 81 mg p.o. daily. 3. Omeprazole 20 mg p.o. q.a.m. 4. Cholecalciferol 1000 units p.o. q.a.m. 5. Lisinopril 10 mg p.o. daily. 6. Sertraline 25 mg p.o. daily. 7. Mesalamine 4.8 g p.o. daily with meals. HOSPITAL COURSE: Mr. Farris is a 78-year-old male who presented to the emergency room on 03/26/18 with concern for dizziness. Please see the dictated H and P from Dr. Jeffrey Mata for complete details. In brief, the patient states that around 7:30 in the morning prior to admission he became dizzy, he became nauseous and vomited x1. In the emergency room, he had a very mild bradycardia with the heart rate running about 48 to 49. His workup was negative including normal electrolytes, no leukocytosis, and otherwise stable vital signs. CT brain showed no acute intracranial pathology. Mr. Farris was placed in observation in the hospital overnight. Today, he worked with Physical Therapy and had maneuvers performed for possible BPPV. He states that his vertigo is now resolved. He does also note that he recently had what he describes as a cold with congestion, runny nose, and sneezing. It is possible that he may have had a vestibulitis or labyrinthitis causing vertigo as well. Mr. Farris's symptoms have resolved and he is medically stable for discharge to home. I will note that on arrival his heart rate was running about 48 on metoprolol succinate 50 mg, and for that reason, we have decreased it to 25 mg daily and I have encouraged him to discuss this with Dr. Herrera, who will be seeing for an echocardiogram within the next month. DISPOSITION: To home. DIET: Low fat, low salt. ACTIVITY: As tolerated. FOLLOWUP PLANS: Please follow up with Dr. Kong and Dr. Herrera within the next week and in the next month respectively. TIME SPENT: Approximately 60 minutes was spent in the discharge of this patient , more than half that time was spent with the patient at the bedside reviewing the events leading up to and during this hospitalization, performing the physical exam, and reviewing the plan of care. TESS KAPLAN NP [id number]/[facility] #: [id number] FRANNIE
[2018-03-27] MEDS ORDERED: Sertraline* 25 MG TAB PO SCH (16:00)
[2018-03-27] MEDS ORDERED: Metoprolol Succinate XL TAB* 25 MG PO SCH (16:00)
[2018-03-27] MEDS ORDERED: Lisinopril TAB* 10 MG PO SCH (16:00)
[2018-03-27] MEDS ORDERED: Metoprolol Succinate XL TAB* 50 MG PO SCH (16:00)
== END 2018-03-27 12:25 | disposition home or self-care (01) ==
LOC: ED 11:16 → MED 19:14
PROVIDERS: ADMIT Student in an Organized Health Care Education/Training Program; ATTEND Internal Medicine
DX: R42 Dizziness and giddiness (principal); J44.9 Chronic obstructive pulmonary disease, unspecified; Z79.82 Long term (current) use of aspirin; R11.0 Nausea; Z87.891 Personal history of nicotine dependence; I25.10 Atherosclerotic heart disease of native coronary artery without angina pectoris; Z95.5 Presence of coronary angioplasty implant and graft; K21.9 Gastro-esophageal reflux disease without esophagitis; R00.1 Bradycardia, unspecified; I10 Essential (primary) hypertension
CPT/HCPCS: 36415; 70450; 71046; 80053; 80061; 83605; 83735; 83880; 84100; 84484; 85025; 85610; 85730; 93005; 96361; 96374; 96375; 99284; A9270-GY; G0378; G8978-GP-CH; G8979-GP-CH; G8980-GP-CH; J0461; J1644; J2405

== ENCOUNTER 2019-03-23 07:08 | Day surgery (SDC) | payer MEDICARE ==
--- NOTE | 2019-03-17 18:10 | HP ---
CC: Dr. Kong HISTORY AND PHYSICAL: DATE OF PLANNED ADMISSION AND SURGERY: 03/23/19 HISTORY OF PRESENT ILLNESS: Mr. Farris is a 78-year-old white male with right hydronephrosis secondary to a mid right ureteral stricture, managed by chronic right ureteral stent drainage, who is admitted for cystoscopy and right ureteral stent exchange. Mr. Farris presented about one year and a half ago with chronically impacted, proximal to mid right ureteral calculi. He underwent a ureteroscopy and laser lithotripsy. The ureteral mucosa looked thinned out and abraded but there was no ureteral perforation. Following removal of the ureteral stent, he was noted to have developed a ureteral stricture and required ureteroscopy and balloon dilation with stent placement. Following removal of the stent, the stricture recurred and again he had balloon dilation and chronic stenting but the stricture recurred. At that time, the patient was given the option of chronic stenting versus referring him for surgical correction of the stricture. He preferred to continue with the stent drainage. The stent was last replaced 6 months ago ( black silicone, 8.5 Divehi, 24 cm long). The patient has been tolerating the stent very well. He has no flank pain and no voiding symptoms and no hematuria. He has no urinary tract infections and no irritative bladder symptoms. He is now admitted for elective right ureteral stent exchange. PAST MEDICAL HISTORY AND SYSTEM REVIEW: He has history of coronary artery disease and has been stable. He is followed by Cardiology at [facility]. He is also hypertensive and has hyperlipidemia, on treatment. MEDICATIONS: He is maintained on the following medications: 1. Baby aspirin a day. 2. Lisinopril 10 mg daily. 3. Metoprolol 50 mg daily. 4. Nitrostat sublingual as needed. 5. Omeprazole 20 mg daily for GERD. 6. He is on Crestor 40 mg daily. 7. Zoloft 25 mg daily. ALLERGIES: He reports having intolerance to Zetia. I am including the note from his last visit with Dr. Kong in October 2018. I am also including the lab work that was done at [facility] about 6 weeks ago. FAMILY HISTORY: Negative. SOCIAL HISTORY: The patient is a nonsmoker. He has history of depression. He is on treatment. He does not take any illicit drugs. PHYSICAL EXAMINATION GENERAL: He is a pleasant and healthy looking white male who looks good for his age. VITAL SIGNS: Blood pressure 120/80, pulse of 70. LUNGS: Clear. HEART: Regular and rhythmic. No murmurs. ABDOMEN: Soft. No masses, no tenderness and no CVA tenderness. IMPRESSION: Right ureteral stricture, managed by chronic right ureteral stent drainage. PLAN: The plan is for cystoscopy, right retrograde pyelography and right ureteral stent exchange. I discussed the above plans with the patient. All his questions were answered. [id number]/[facility] #: [id number] FRANNIE
[~2019-03-23 07:08] MED LIST changes: -Buffered Lidocaine 0.9% SYRIN* 5 ML/SYR SYRINGE INTRADERM ONE; +Buffered Lidocaine 1% SYRIN* 1 ML/SYRINGE INTRADERM ONE; -Famotidine IV* 10 MG/ML 2 ML (20 mg) IV ONE; -Famotidine IV* 10 MG/ML 2 ML (20 mg) ONE; +Lactated Ringers 1000 ML Bag* 1,000 ML IV SCH; -cefTRIAXone(*) 1 GM ADVAN/BAG ONE
[2019-03-23] MEDS ORDERED: Buffered Lidocaine 1% SYRIN* 1 ML/SYRINGE INTRADERM ONE (07:50)
[2019-03-23] MEDS ORDERED: cefTRIAXone(*) 2 GM ADDV.VIAL IVPB ONE (07:50)
[2019-03-23] MEDS ORDERED: Ondansetron INJ* 2 MG/ML VIAL IV PRN (08:02)
[2019-03-23] MEDS ORDERED: Naloxone* 0.4 MG/ML 1 ML VIAL IV PRN (08:02)
[2019-03-23] MEDS ORDERED: HYDROmorphone INJ1* 1 MG/ML SYRINGE IV PRN (08:02)
[2019-03-23] MEDS ORDERED: Iohexol 180 (CONTRAST) 10 ML SDV IV ONE (10:20)
[2019-03-23] MEDS ORDERED: HYDROmorphone INJ1* 1 MG/ML SYRINGE ONE (10:26)
[2019-03-23] MEDS ORDERED: Propofol* 10 MG/ML 20 ML BTL ONE (10:26)
[2019-03-23] MEDS ORDERED: EPHEDrine (Pressors)* 50 MG/ML VIAL ONE (10:42)
[2019-03-23 14:06] VITALS: BP 141/82
--- NOTE | 2019-03-23 21:51 | OP ---
CC: Dr. Kong * DATE OF OPERATION: 03/23/19 - [facility] DATE OF : 42 SURGEON: Mann Shelton MD ANESTHESIOLOGIST: Dr. Blanco. ANESTHESIA: General. PRE-OP DIAGNOSES: 1. Right ureteral stricture. 2. Status post placement of right ureteral stent. POST-OP DIAGNOSES: 1. Right ureteral stricture. 2. Status post placement of right ureteral stent. OPERATIVE PROCEDURE: 1. Cystoscopy. 2. Right retrograde pyelography and right ureteral stent exchange. 3. Extraction of gravel from bladder. INDICATION FOR PROCEDURE: Mr. Farris is a 78-year-old white male who developed a stricture in the mid right ureter after ureteroscopy and laser litho of chronically impacted ureteral calculi. He has been managed by chronic stent drainage. His stent was last replaced 6 months ago. He has been doing fine, having no renal or bladder symptoms. He is now admitted for elective stent exchange. PATHOLOGY: At cystoscopy, the penile and bulbar urethrae looked normal. There was a false passage noted posterior to the prostate that seemed well epithelialized and was in fact noted at his initial cystoscopy 2 years ago. Small calculi were noted in that false passage. The prostatic urethra was moderately obstructing. Examination of the bladder showed the stent coming from the right ureteral orifice. There were small stones noted in the bladder that seemed to have taken the shape of the distal stent. Upon right retrograde pyelography, there was mild to moderate right hydronephrosis. DESCRIPTION OF PROCEDURE: After successful general anesthesia, the patient was placed in the lithotomy position and was prepped and draped for cystoscopy. Cystoscopy was performed. The bladder was inspected and the findings in the urethra and the bladder were noted. The distal limb of the stent was pulled out to the level of the urethral meatus. A flexible-tip guidewire could not be introduced into the lumen of the stent and the stent had to be removed. The guidewire was then introduced into the right ureteral orifice. Initially, it did not go past the stricture which was located in the mid ureter. After several attempts, the guidewire was successfully introduced through the stricture and positioned in the area of the renal pelvis. Retrograde pyelography was performed. A Black Silicone stent, 24 cm long, 8.5-Swedish was then placed with the proximal end coiling in the renal pelvis and the distal end coiling inside the bladder. There was good drainage of contrast from the kidney. Using the stone grasper, the gravel and the small stones noted in the bladder and in the urethra were then extracted. The scope was then removed. An 18- Swedish coude catheter was passed into the bladder and the balloon inflated with 10 cc of water. The patient tolerated the procedure well and left the operating room in good condition. The Leroy catheter will be removed before the patient's discharge. The plan will be to replace the stent in 6 months. [id number]/[facility] #: [id number] [facility]
== END 2019-03-23 14:07 | disposition home or self-care (01) ==
LOC: OR 07:08
PROVIDERS: ATTEND Urology
DX: N13.1 Hydronephrosis with ureteral stricture, not elsewhere classified (principal); N21.0 Calculus in bladder; I10 Essential (primary) hypertension; I25.10 Atherosclerotic heart disease of native coronary artery without angina pectoris; E78.5 Hyperlipidemia, unspecified; F32.9 Major depressive disorder, single episode, unspecified
CPT/HCPCS: 74420; J0696; J1170; J2704

== ENCOUNTER 2024-01-16 10:25 | Observation (INO) ==
[2024-01-16] MEDS: Iodixanol 320 (CONTRAST) 100 ML SDV IV ONE (10:40)
[2024-01-16 10:53] LABS: ABS Basophils 0.1 10^3/uL (0.0-0.1); ABS Eosinophils 0.1 10^3/uL (0.0-0.5); ABS Monocytes 1.3 10^3/uL (0.0-1.1); ABS Neutrophils 6.6 10^3/uL (1.5-7.6); ABS Nucleated RBC 0.01 10^3/ul; Eosinophil % 1.2 %; Hematocrit 38.8 % (38-53); Hemoglobin 13.4 g/dL (13.2-16.3); Lymphocyte % 11.2 %; Mean Corpuscular Hemoglobin 33.4 pg (27-33); Mean Corpuscular Hgb Conc 34.6 g/dL (31-36); Mean Corpuscular Volume 96.4 fL (80-97); Mean Platelet Volume 8.5 fL (7.5-11.2); Nucleated Red Blood Cells % 0.1 %/100WBC (0.0-0.8); Platelet Count 236 10^3/uL (150-450); Red Blood Count 4.02 10^6/uL (4.06-5.63); Red Cell Distribution Width 13.3 % (12-17); White Blood Count 9.1 10^3/uL (3.6-10.2)
[2024-01-16 10:59] LABS: INR 1.16 (0.85-1.14)
[2024-01-16 11:12] LABS: ALT 167 U/L (7-52); AST 204 U/L (13-39); Albumin 3.7 g/dL (3.2-5.2); Albumin/Globulin Ratio 1.2 (1-3); Alcohol, S < 13 mg/dL (<13); Alkaline Phosphatase 170 U/L (35-149); Anion Gap 11 mmol/L (2-16); Blood Urea Nitrogen 59 mg/dL (6-24); C Reactive Protein 168.26 mg/L (<8.01); CO2 Carbon Dioxide 21 mmol/L (22-32); Calcium 8.9 mg/dL (8.6-10.3); Chloride 104 mmol/L (101-111); Creatinine, Serum 2.28 mg/dL (0.67-1.17); Glucose 133 mg/dL (70-100); Potassium 3.8 mmol/L (3.5-5.0); Sodium 136 mmol/L (135-145); Total Protein 6.7 g/dL (6.4-8.9); eGFR CKD-EPI 27.9 (>60)
[2024-01-16 11:19] LABS: High Sens Troponin Baseline 6 pg/mL (<20)
[2024-01-16] MEDS: Lactated Ringers 1000 ml BAG 1,000 ML IV ONE (12:06)
[2024-01-16 12:46] LABS: High Sensitivity Troponin 1 Hr 5 pg/mL (<20)
[2024-01-16 13:58] LABS: Urine Appearance Extra Turbid; Urine Bilirubin Negative (Negative); Urine Blood 2+ (Negative); Urine Glucose Negative (Negative); Urine Ketones Negative (Negative); Urine Nitrite Negative (Negative); Urine Protein 2+ (>=100 mg/dL) (Negative); Urine Specific Gravity 1.014 (1.002-1.030); Urine Urobilinogen Negative (Negative)
[2024-01-16 14:04] LABS: Budding Yeast Present /HPF (Absent); Urine Bacteria 1+ /HPF (Absent); Urine Red Blood Cell 3+(>10/hpf) /HPF (0-Trace); Urine White Blood Cell 3+(>20/hpf) /HPF (0-Trace)
[2024-01-16 14:13] LABS: Urine Color Light-Yellow
[2024-01-16] MEDS: cefTRIAXone 1 gm/50 mL D5W 1 GM/50 ML BAG IV ONE (14:49)
[2024-01-16] MEDS: Ondansetron 4 mg VIAL 2 MG/ML 2 ml VIAL IV ONE (16:58)
[2024-01-16] MEDS: Potassium Chloride LIQUID 20 MEQ/15 ML LIQUID PO ONE (17:16)
[2024-01-16] MEDS: NS 0.9% 1000 ml BAG 1,000 ML IV SCH (17:16)
[2024-01-16] MEDS: Heparin 5000 UNITS/ML 1 mL VIAL SUBCUT SCH (20:25)
[2024-01-17 06:32] LABS: Hematocrit 32.7 % (38-53); Mean Corpuscular Hemoglobin 32.4 pg (27-33); Mean Corpuscular Hgb Conc 33.5 g/dL (31-36); Mean Corpuscular Volume 96.7 fL (80-97); Mean Platelet Volume 8.7 fL (7.5-11.2); Platelet Count 197 10^3/uL (150-450); Red Blood Count 3.38 10^6/uL (4.06-5.63); Red Cell Distribution Width 13.3 % (12-17); White Blood Count 23.4 10^3/uL (3.6-10.2)
[2024-01-17 06:52] LABS: Albumin 3.2 g/dL (3.2-5.2); Albumin/Globulin Ratio 1.3 (1-3); Calcium 8.3 mg/dL (8.6-10.3); Creatinine, Serum 2.2 mg/dL (0.67-1.17); Globulin 2.5 g/dL (2-4); Potassium 4.2 mmol/L (3.5-5.0); Total Bilirubin 0.8 mg/dL (0.2-1.0); Total Protein 5.7 g/dL (6.4-8.9); eGFR CKD-EPI 29.2 (>60)
[2024-01-17 08:20] LABS: ABS Basophils 0.1 10^3/uL (0.0-0.1); ABS Lymphocytes 0.6 10^3/uL (1.0-4.8); ABS Monocytes 1.5 10^3/uL (0.0-1.1); ABS Neutrophils 21.3 10^3/uL (1.5-7.6); ABS Nucleated RBC 0.01 10^3/ul; Eosinophil % 0.1 %; Lymphocyte % 2.4 %
[2024-01-17] MEDS: Aspirin EC 81 mg TAB.EC (enteric coated) PO SCH (09:06)
[2024-01-17] MEDS ORDERED: cefTRIAXone 1 gm/50 mL D5W 1 GM/50 ML BAG IV SCH (14:00)
[2024-01-17] MEDS: cefTRIAXone 1 gm/50 mL D5W 1 GM/50 ML BAG IV SCH (14:02)
[2024-01-17 16:22] LABS: Hematocrit 31.5 % (38-53); Hemoglobin 10.7 g/dL (13.2-16.3); Mean Corpuscular Hemoglobin 32.6 pg (27-33); Mean Corpuscular Hgb Conc 33.9 g/dL (31-36); Mean Corpuscular Volume 96.1 fL (80-97); Mean Platelet Volume 8.3 fL (7.5-11.2); Platelet Count 203 10^3/uL (150-450); Red Blood Count 3.27 10^6/uL (4.06-5.63); Red Cell Distribution Width 13.6 % (12-17); White Blood Count 16.9 10^3/uL (3.6-10.2)
[2024-01-17 16:59] LABS: ABS Basophils 0.1 10^3/uL (0.0-0.1); ABS Eosinophils 0.2 10^3/uL (0.0-0.5); ABS Lymphocytes 0.8 10^3/uL (1.0-4.8); ABS Monocytes 1.2 10^3/uL (0.0-1.1); ABS Neutrophils 14.7 10^3/uL (1.5-7.6); Eosinophil % 1.1 %; Lymphocyte % 4.6 %
[2024-01-17 17:09] LABS: Calcium 8.5 mg/dL (8.6-10.3); Creatinine, Serum 2.02 mg/dL (0.67-1.17); Potassium 3.7 mmol/L (3.5-5.0); eGFR CKD-EPI 32.3 (>60)
[2024-01-18 05:53] LABS: ABS Basophils 0.1 10^3/uL (0.0-0.1); ABS Eosinophils 0.3 10^3/uL (0.0-0.5); ABS Lymphocytes 1.2 10^3/uL (1.0-4.8); ABS Monocytes 0.9 10^3/uL (0.0-1.1); ABS Neutrophils 9.7 10^3/uL (1.5-7.6); ABS Nucleated RBC 0.01 10^3/ul; Eosinophil % 2.3 %; Hematocrit 30.2 % (38-53); Hemoglobin 10.5 g/dL (13.2-16.3); Mean Corpuscular Hemoglobin 33.4 pg (27-33); Mean Corpuscular Hgb Conc 34.7 g/dL (31-36); Mean Corpuscular Volume 96.2 fL (80-97); Mean Platelet Volume 8.3 fL (7.5-11.2); Platelet Count 209 10^3/uL (150-450); Red Blood Count 3.14 10^6/uL (4.06-5.63); Red Cell Distribution Width 13.6 % (12-17); White Blood Count 12.2 10^3/uL (3.6-10.2)
[2024-01-18 06:08] LABS: Albumin/Globulin Ratio 1.1 (1-3); Calcium 8.2 mg/dL (8.6-10.3); Creatinine, Serum 1.92 mg/dL (0.67-1.17); Globulin 2.8 g/dL (2-4); Potassium 3.9 mmol/L (3.5-5.0); Total Bilirubin 0.5 mg/dL (0.2-1.0); Total Protein 5.8 g/dL (6.4-8.9); eGFR CKD-EPI 34.4 (>60)
[2024-01-18 09:58] VITALS: BP 107/75
== END 2024-01-18 14:05 | disposition home or self-care (01) ==
LOC: EDHOLD 10:25 → ED 10:25 → SSU 22:42
PROVIDERS: ADMIT Internal Medicine; ATTEND Internal Medicine